=== PATIENT | female | born 1990 | race Caucasian/White ===

== ENCOUNTER 2016-05-13 01:07 | Inpatient (IN) | payer MEDICAID, OTHER ==
[~2016-05-13] VITALS: Ht 157.5 cm; Wt 63.5 kg
[~2016-05-13 01:07] MED LIST: ACHD5005 PO; DCS100C PO; FERR-57 PO; FERR256T PO; IBP600T1 PO; PREN-93 PO
--- OUTSIDE RECORDS SUMMARY | 2016-05-13 01:16 | XMS REPORT ---
Author Author ROLAND ANDERSON Organization [employer] Address Unknown Phone Unavailable Care Team Providers Care Width Stripper Name Role Phone ROLAND ANDERSON CP Unavailable Allergies, Adverse Reactions, Alerts Substance Reaction Event Type Azithromycin childhood reaction Drug Allergy Problems Problem Type Condition Code Onset Dates Condition Status Problem depression F53 Active Problem Bipolar affective disorder, remission status unspecified F31.9 Active Problem Generalized anxiety disorder F41.1 Active Assessment Screen for STD (sexually transmitted disease) Z11.3 Active Problem Post traumatic stress disorder F43.10 Active Assessment Vaginal discharge N89.8 Active Medications Medication Code System Code Instructions Start Date End Date Status Dosage Lexapro [facility] [address]-62 10 mg Orally Once a day July 06, 2015 1 tablet Procedures Procedure Coding System Code Date SUDHA VAG, DNA, DIR PROBE CPT-4 02280 September 20, 2015 No Charge CPT-4 03333 September 20, 2015 Office Visit, Est Pt., Level 3 CPT-4 38734 September 20, 2015 Vital Signs Date/Time: September 20, 2015 Cardiac Monitoring Heart Rate 76 bpm Weight 152.4 lbs Height 62 in Blood Pressure Diastolic 74 mmHg Blood Pressure Systolic 116 mmHg Results No Known Results Summary Purpose [employer] Submission
[2016-05-13 01:51] LABS: BASOPHILS % (AUTO) 0 % (0-10); EOSINOPHILS # (AUTO) 0.1 10^3/uL (0.0-0.3); EOSINOPHILS % (AUTO) 1 % (0-10); LYMPHOCYTES # (AUTO) 2.6 X 10^3 (1.0-4.0); LYMPHOCYTES % (AUTO) 26 % (12-44); MEAN CORPUSCULAR HEMOGLOBIN 28 PG (25-34); MEAN CORPUSCULAR HGB CONC 33 G/DL (32-36); MEAN CORPUSCULAR VOLUME 83 FL (80-99); MEAN PLATELET VOLUME 10.4 FL (7.4-10.4); MONOCYTES # (AUTO) 0.7 X 10^3 (0.0-1.0); MONOCYTES % (AUTO) 7 % (0-12); NEUTROPHILS # (AUTO) 6.6 X 10^3 (1.8-7.8); NEUTROPHILS % (AUTO) 66 % (42-75); PLATELET COUNT 266 10^3/uL (130-400); RED BLOOD COUNT 4.63 10^6/uL (4.35-5.85); WHITE BLOOD COUNT 9.9 10^3/uL (4.3-11.0)
[2016-05-13 01:55] LABS: BILIRUBIN,URINE NEGATIVE (NEGATIVE); KETONES,URINE NEGATIVE (NEGATIVE); LEUKOCYTE ESTERASE ,URINE 1+ (NEGATIVE); NITRITE,URINE NEGATIVE (NEGATIVE); PH,URINE 8 (5-9); PROTEIN,URINE NEGATIVE (NEGATIVE); UROBILINOGEN,URINE 4 MG/DL (NORMAL)
[2016-05-13 02:03] LABS: WBC,URINE RARE /HPF
[2016-05-13 02:18] LABS: ALANINE AMINOTRANSFERASE 313 U/L (0-55); ALBUMIN 4.3 G/DL (3.2-4.5); AMYLASE 2026 U/L (25-125); ANION GAP 13 MMOL/L (5-14); ASPARTATE AMINO TRANSFERASE 473 U/L (5-34); BILIRUBIN,TOTAL 1.2 MG/DL (0.1-1.0); BLOOD UREA NITROGEN 11 MG/DL (7-18); BUN/CREATININE RATIO 14; CALCIUM 9.2 MG/DL (8.5-10.1); CARBON DIOXIDE 21 MMOL/L (21-32); CHLORIDE 106 MMOL/L (98-107); CREATININE SERUM 0.79 MG/DL (0.60-1.30); GFR ESTIMATED > 60; GLUCOSE 113 MG/DL (70-105); POTASSIUM 3.4 MMOL/L (3.6-5.0); SODIUM 140 MMOL/L (135-145); TOTAL PROTEIN 6.9 G/DL (6.4-8.2)
[2016-05-13] MEDS ORDERED: KETOROLAC 30 MG/ML VIAL IVP ONE (02:30)
--- NOTE | 2016-05-13 02:33 | ED Abdominal Pain ---
General Chief Complaint: Abdominal/GI Problems Stated Complaint: SOB,VOMITING,ABD PAIN RT SIDE,CONSTIPATED Nursing Triage Note: Reports abdominal pain and problems for 6 yrs. States on Friday 05/12 developed RUQ after eating some soup. Pt c/o pressure feeling in epigastric and forcing self to vomit to try relief and forced self early into small BM. Sepsis Screen: No Definite Risk Source of Information: Patient History of Present Illness Time Seen By Provider: 01:30 Initial Comments PT ARRIVES VIA POV FROM HOME C/O SEVERE PAIN / PRESSURE IN RUQ SINCE Thursday05/09/16 PAIN IS CONSTANT, AND IS WORSE IMMEDIATELY AFTER EATING HAS HAD SAME SYMPTOMS OFF AND ON FOR 6 YEARS--GETS IT A COUPLE OF TIMES A YEAR AND LASTS FOR 1-2 HOURS AND GOES AWAY. HAS NEVER SOUGHT CARE. STATES IT HAS NEVER BEEN THIS BAD OR LASTED THIS LONG HAS HAD NAUSEA SINCE THURSDAY AND HAS VOMITED AT LEAST 15 TIMES SINCE 1600 TODAY. STATES SHE CAN'T KEEP ANYTHING DOWN. STATES SHE HAS BEEN FORCING HERSELF TO VOMIT, TRYING TO RELIEVE PAIN NO DIARRHEA. HAD A VERY SMALL, VERY HARD BM TODAY--STATES SHE FORCED HERSELF TO HAVE BM, TRYING TO RELIEVE PAIN NO FEVER NO URINARY SYMPTOMS LMP 04/17/16--ALMOST 1 WEEK EARLY. NO CONTROL PCP: [facility] Allergies and Home Medications Allergies Coded Allergies: azithromycin (Verified Allergy, Unknown, 01/18/08) Home Medications Docusate Sodium 100 Mg Cap #40 100 MG PO BID PRN PRN CONSTIPATION Prescribed by: DONNA RUBIO on 09/13/14830 Ferrous Sulfate 325 Mg Tablet #60 325 MG PO DAILY Prescribed by: DONNA RUBIO on 09/13/14830 Hydrocodone Bit/Acetaminophen 1 Tab Tab #50 1-2 TAB PO Q6H PRN PRN PAIN Prescribed by: DONNA RUBIO on 09/13/14830 Ibuprofen 600 Mg Tab #60 600 MG PO Q6H PRN PRN PAIN Prescribed by: DONNA RUBIO on 09/13/14830 Vit/Fe Fumarate/Fa 1 Each Tablet 1 EACH PO HS (Reported) Review of Systems Constitutional: no symptoms reported EENTM: No Symptoms Reported Respiratory: No Symptoms Reported Cardiovascular: No Symptoms Reported Gastrointestinal: See HPI Abdominal Pain Constipated Nausea Poor Appetite Poor Fluid Intake Vomiting Genitourinary: No Symptoms Reported Musculoskeletal: no symptoms reported Skin: no symptoms reported Psychiatric/Neurological: No Symptoms Reported Endocrine: No Symptoms Reported Hematologic/Lymphatic: No Symptoms Reported Past Vepzlsp-Wxjpbi-Jevyje Hx Patient Social History Alcohol Use: Occasionally Uses (HISTORY OF VERY HEAVY USE, BUT NOW ONLY "OCCASIONALLY"--DID DRINK ON 05/03/16) Recreational Drug Use: No Smoking Status: Former Smoker (03/10 PPD, QUIT 12/2015) Type Used: Cigarettes 2nd Hand Smoke Exposure: No Recent Foreign Travel: No Contact w/Someone Who Travel: No Recent Infectious Disease Expo: No Recent Hopitalizations: No Immunizations Up To Date Tetanus Booster (TDap): More than 5yrs PED Vaccines UTD: Yes Date of Influenza Vaccine: Dec 08, 2015 Seasonal Allergies Seasonal Allergies: No Surgeries HX Surgeries: Yes ( x 2) Surgeries: Section Respiratory Hx Respiratory Disorders: No Cardiovascular Hx Cardiac Disorders: No Neurological Hx Neurological Disorders: No Reproductive System : No Hx Reproductive Disorders: No Sexually Transmitted Disease: Yes (HPV, abnormal pap) Female Reproductive Disorders: Denies Genitourinary Hx Genitourinary Disorders: No Gastrointestinal Hx Gastrointestinal Disorders: Yes Gastrointestinal Disorders: Irritable Bowel Musculoskeletal Hx Musculoskeletal Disorders: No Endocrine Hx Endocrine Disorders: No HEENT HX ENT Disorders: No Cancer Hx Cancer: No Psychosocial Hx Psychiatric Problems: Yes Behavioral Health Disorders: Anxiety, Depression Integumentary HX Skin/Integumentary Disorder: Yes Skin/Integumentary Disorders: Eczema Blood Transfusions Hx Blood Disorders: Yes (ANEMIA) Adverse Reaction to a Blood Tr: No Family Medical History Family Medial History: Arthritis GRANDPARENTS No Family History of: AIDS Abdominal aortic aneurysm Alcoholism Alzheimer's disease Asthma Cancer of mouth Cardiovascular disease Cataracts Colon cancer Completed stroke Dementia Diabetes mellitus Drug abuse Glaucoma Hypertension Kidney disease Myocardial infarction Parkinson's disease Prostate cancer Psychosocial problem Respiratory disorder Seizure disorder Severe allergy Thyroid disease Tuberculosis Physical Exam Vital Signs VS - Last 72 Hours, by Label 05/13/16 05/13/16 01:20 02:55 Temp 98.7 98.7 Pulse 87 Resp 20 B/P 117/72 Pulse Ox 100 O2 Delivery Room Air Capillary Refill : Less Than 3 Seconds General Appearance: WD/WN other (ANXIOUS, TALKING NON-STOP, HYPERVENTILATING) HEENT: PERRL/EOMI normal ENT inspectionNo scleral icterus (R), No scleral icterus (L) Neck: normal inspection Respiratory: normal breath sounds no respiratory distress no accessory muscle use Cardiovascular: regular rate, rhythm no murmur Gastrointestinal: normal bowel sounds soft no organomegaly no pulsatile massNo distended, No guarding, No rebound, tenderness (EPIGASTRIC AND RUQ TENDERNESS)No hernia, No mass Back: normal inspection no CVA tenderness Neurologic/Psychiatric: computer repairer II-XII nml as tested no motor/sensory deficits alert oriented x 3 Skin: normal color warm/dryNo rash, tattoos/piercings (MULTIPLE TATTOOS) Progress/Results/Core Measures Results/Orders Lab Results Laboratory Tests Test 05/13/16 01:43 05/13/16 01:46 Range/Units Alanine Aminotransferase (ALT/SGPT) 313 H 0-55 U/L Albumin 4.3 3.2-4.5 G/DL Alkaline Phosphatase 204 H 40-136 U/L Amylase Level 2026 H 25-125 U/L Anion Gap 13 5-14 MMOL/L Aspartate Amino Transf (AST/SGOT) 473 H 5-34 U/L BUN/Creatinine Ratio 14 Basophils # (Auto) 0.0 0.0-0.1 10^3/uL Basophils (%) (Auto) 0 0-10 % Blood Urea Nitrogen 11 7-18 MG/DL Calcium Level 9.2 8.5-10.1 MG/DL Carbon Dioxide Level 21 21-32 MMOL/L Chloride Level 106 98-107 MMOL/L Creatinine 0.79 0.60-1.30 MG/DL Eosinophils # (Auto) 0.1 0.0-0.3 10^3/uL Eosinophils (%) (Auto) 1 0-10 % Estimat Glomerular Filtration Rate > 60 Glucose Level 113 H 70-105 MG/DL Hematocrit 38 35-52 % Hemoglobin 12.8 11.5-16.0 G/DL Lipase 8-78 U/L Lymphocytes # (Auto) 2.6 1.0-4.0 X 10^3 Lymphocytes (%) (Auto) 26 12-44 % Mean Corpuscular Hemoglobin 28 25-34 PG Mean Corpuscular Hemoglobin Concent 33 32-36 G/DL Mean Corpuscular Volume 83 80-99 FL Mean Platelet Volume 10.4 7.4-10.4 FL Monocytes # (Auto) 0.7 0.0-1.0 X 10^3 Monocytes (%) (Auto) 7 0-12 % Neutrophils # (Auto) 6.6 1.8-7.8 X 10^3 Neutrophils (%) (Auto) 66 42-75 % Platelet Count 266 130-400 10^3/uL Potassium Level 3.4 L 3.6-5.0 MMOL/L Red Blood Count 4.63 4.35-5.85 10^6/uL Red Cell Distribution Width 14.0 10.0-14.5 % Sodium Level 140 135-145 MMOL/L Total Bilirubin 1.2 H 0.1-1.0 MG/DL Total Protein 6.9 6.4-8.2 G/DL White Blood Count 9.9 4.3-11.0 10^3/uL Urine Bacteria TRACE /HPF Urine Bilirubin NEGATIVE NEGATIVE Urine Casts NONE /LPF Urine Clarity CLEAR Urine Color YELLOW Urine Crystals NONE /LPF Urine Culture Indicated NO Urine Glucose (UA) NEGATIVE NEGATIVE Urine Ketones NEGATIVE NEGATIVE Urine Leukocyte Esterase 1+ H NEGATIVE Urine Mucus SMALL H /LPF Urine Nitrite NEGATIVE NEGATIVE Urine Protein NEGATIVE NEGATIVE Urine RBC RARE /HPF Urine RBC (Auto) NEGATIVE NEGATIVE Urine Specific [place] 1.010 L 1.016-1.022 Urine Squamous Epithelial Cells 10-25 H /HPF Urine Urobilinogen 4 H NORMAL MG/DL Urine WBC RARE /HPF Urine pH 8 5-9 My Orders Orders-LOREE ALVAREZ DO Saline Lock/Iv-Start (05/13/16 01:34) Urine Bedside (05/13/16 01:34) Amylase (05/13/16 01:34) Cbc With Automated Diff (05/13/16 01:34) Comprehensive Metabolic Panel (05/13/16 01:34) Lipase (05/13/16 01:34) Ua Culture If Indicated (05/13/16 01:34) Ct Abdomen/Pelvis W (05/13/16 02:15) Ketorolac Injection (Toradol Injection) (05/13/16 02:30) Iohexol Injection (Omnipaque 350 Mg/Ml 1 (05/13/16 03:30) Ns (Ivpb) (Sodium Chloride 0.9% Ivpb Bag (05/13/16 03:30) Fentanyl Injection (Sublimaze Injection (05/13/16 04:24) Medications Given in ED Current Medications Medications Dose Ordered Sig/Laura Route Start Time Stop Time Status Last Admin Dose Admin Iohexol 100 ml ONCE ONCE IV 05/13/16 03:30 05/13/16 03:31 DC 05/13/16 03:31 100 ML Ketorolac Tromethamine 30 mg ONCE ONCE IVP 05/13/16 02:30 05/13/16 02:31 DC 05/13/16 02:55 30 MG Sodium Chloride 100 ml ONCE ONCE IV 05/13/16 03:30 05/13/16 03:31 DC 05/13/16 03:31 80 ML Vital Signs/I&O Vital Sign - Last 12Hours 05/13/16 05/13/16 01:20 02:55 Temp 98.7 98.7 Pulse 87 Resp 20 B/P 117/72 Pulse Ox 100 O2 Delivery Room Air Blood Pressure Mean: 87 Point of Care Testing Urine -Bedside: Negative Progress Note : Progress Note PAIN AND NAUSEA EASED AT TIME OF ADMIT Diagnostic Imaging Comments CT ABDOMEN/PELVIS--ACUTE PANCREATITIS, WITH GALLSTONES AND DILATED CBD TO 9MM AND CHOLEDOCHOLITHIASIS IS SUSPECTED. PER [facility] VIA FAX @ [phone] Reviewed: Reviewed by Me Departure Communication Progress Notes 0420--SPOKE WITH DR. MAHAN, ACCEPTS PT FOR ADMIT Impression Impression: Primary Impression: Acute gallstone pancreatitis Additional Impression: Gallbladder calculus with acute cholecystitis Disposition: ADMITTED INPATIENT Condition: Stable Decision to Admit Reason: Admit from ER (General) Decision to Admit/Date: May 13, 2016 Time/Decision to Admit Time: 04:20 Departure-Patient Inst. Referrals: LIO REYES DO (PCP) Primary Care Physician [facility] (Family) Primary Care Physician LOREE ALVAREZ DO May 13, 2016 02:33
[2016-05-13] MEDS ORDERED: IOHEXOL 350 MG/ML 100 ML (OMNIPAQUE 350) VIAL IV ONE (03:30)
[2016-05-13] MEDS ORDERED: NS 100 ML (IVPB) BAG IV ONE (03:30)
[2016-05-13] MEDS ORDERED: fentaNYL INJECTION 100 MCG/2 ML AMP IVP STA (04:24)
[2016-05-13] MEDS ORDERED: D5 1/2 NS 1000 ML IV SOLUTION 1,000 ML IV ONE (05:24)
[2016-05-13] MEDS ORDERED: ONDANSETRON 4 MG/2 ML (SDV) Z0FRAN ONE ×2 (05:33→16:47)
[2016-05-13] MEDS: fentaNYL INJECTION 100 MCG/2 ML AMP IVP PRN ×4 (05:40→09:19)
[2016-05-13] MEDS: D5 1/2 NS 1000 ML IV SOLUTION 1,000 ML IV SCH ×2 (05:53→12:41)
[2016-05-13] MEDS ORDERED: KETOROLAC 30 MG/ML VIAL IV PRN (06:00)
[2016-05-13 08:00] VITALS: BP 90/58
[2016-05-13 08:08] LABS: BASOPHILS % (AUTO) 0 % (0-10); EOSINOPHILS # (AUTO) 0.1 10^3/uL (0.0-0.3); EOSINOPHILS % (AUTO) 1 % (0-10); LYMPHOCYTES % (AUTO) 13 % (12-44); MEAN CORPUSCULAR HEMOGLOBIN 28 PG (25-34); MEAN CORPUSCULAR HGB CONC 33 G/DL (32-36); MEAN CORPUSCULAR VOLUME 83 FL (80-99); MEAN PLATELET VOLUME 10.6 FL (7.4-10.4); MONOCYTES # (AUTO) 0.5 X 10^3 (0.0-1.0); MONOCYTES % (AUTO) 7 % (0-12); NEUTROPHILS # (AUTO) 5.8 X 10^3 (1.8-7.8); NEUTROPHILS % (AUTO) 78 % (42-75); PLATELET COUNT 246 10^3/uL (130-400); RED BLOOD COUNT 4.64 10^6/uL (4.35-5.85); RED CELL DISTRIBUTION WIDTH 13.9 % (10.0-14.5); WHITE BLOOD COUNT 7.4 10^3/uL (4.3-11.0)
[2016-05-13] MEDS: ONDANSETRON 4 MG/2 ML (SDV) Z0FRAN IV PRN ×3 (08:29→18:41)
[2016-05-13 08:30] LABS: ALANINE AMINOTRANSFERASE 468 U/L (0-55); ALBUMIN 4.1 G/DL (3.2-4.5); AMYLASE 2599 U/L (25-125); ANION GAP 9 MMOL/L (5-14); ASPARTATE AMINO TRANSFERASE 529 U/L (5-34); BILIRUBIN,TOTAL 1.8 MG/DL (0.1-1.0); BLOOD UREA NITROGEN 9 MG/DL (7-18); BUN/CREATININE RATIO 12; CALCIUM 8.6 MG/DL (8.5-10.1); CARBON DIOXIDE 23 MMOL/L (21-32); CHLORIDE 107 MMOL/L (98-107); CREATININE SERUM 0.77 MG/DL (0.60-1.30); GFR ESTIMATED > 60; GLUCOSE 160 MG/DL (70-105); POTASSIUM 3.9 MMOL/L (3.6-5.0); SODIUM 139 MMOL/L (135-145); TOTAL PROTEIN 6.5 G/DL (6.4-8.2)
--- NOTE | 2016-05-13 08:41 | Diagnostic Imaging Report ---
PROCEDURE: CT abdomen and pelvis with contrast. TECHNIQUE: Multiple contiguous axial images were obtained through the abdomen and pelvis after administration of intravenous contrast. INDICATION: Postprandial right upper quadrant pain. FINDINGS: The pancreas is thickened and mildly hypodense with infiltration of the peripancreatic fat, most notably adjacent to its tail and distal body, compatible with acute pancreatitis. There is thickening along the left lateral conal fascia but no substantial volume of abdominal/pelvic free fluid. No acute fluid collection or pseudocyst. There is cholelithiasis present. The stones in the gallbladder lumen are barely calcified and difficult to perceive but are confirmed present. There is ectasia of the extrahepatic bile duct. The common duct measures 9.5 mm in diameter. The lumen of the distal common bile duct shows some heterogeneity and this is suspicious for intraductal minimally calcified stones as well. Consider MRCP. There is only trace ectasia of the intrahepatic biliary ducts. The liver parenchyma is otherwise normal. The spleen is within normal limits. There is no basilar pleural fluid. The kidneys are unobstructed. Ovarian follicular cysts bilaterally are noted with the right measuring 1.6 and on the left 2.0 cm. The uterus and urinary bladder are normal. IMPRESSION: The findings are most compatible with acute pancreatitis without pseudocyst or other fluid collection. No substantial ascites. Trace intra and mild extrahepatic bile duct dilatation with cholelithiasis. The gallstones are minimally calcified and subtle on CT. There is intraluminal subtle heterogeneity within the distal common bile duct, suspicious for choledocholithiasis with minimal calcification. Consider MRCP. No other substantial finding. Dictated by: Dictated on workstation # [id number]
[2016-05-13] MEDS ORDERED: RANI150T15 PO (09:03)
[2016-05-13] MEDS ORDERED: ONDANSETRON 4 MG/2 ML (SDV) Z0FRAN IVP ONE (09:30)
[2016-05-13] MEDS: morphine INJ 4 MG/ML 1 ML (VIAL/SYRINGE) IVP PRN ×5 (09:33→19:34)
[2016-05-13] MEDS ORDERED: CATHETER FLUSH 10 ML SYR IV PRN (10:00)
--- NOTE | 2016-05-13 11:29 | History & Physical-Surgical ---
History of Present Illness History of Present Illness Reason for visit/HPI Pt was admitted for Acute pancreatitis. HPI: Reports abdominal pain and problems for 6 yrs. States on Thursday developed RUQ after eating some soup. Pt c/o pressure feeling in epigastric and forcing self to vomit to try relief and forced self early into small BM. Pain did not go away and finally came into the ER at around 1am last night. She reports "gallbladder problems" for the past 6 yrs, gets pain a couple of time a year, lasts 1-2 hours and then goes away. She was unable to keep anything down. This am pain was 10 out of 10 , the worst it has every been. "I wanted to just pass out so pain would go away". It was in the RUQ and mid chest radiating straight through to her back. Denied any diarrhea, dysuria or hematuria. Pain better now with Morphine. Date of Admission May 13, 2016 at 04:20 I consulted on this patient on 05/13/16 11:23 Attending Physician Nasim Frances DO Admitting Physician Brittney Dolan DO Consult Allergies and Home Medications Allergies Coded Allergies: azithromycin (Verified Allergy, Unknown, 01/18/08) Home Medications Ranitidine HCl 150 Mg Tablet 150 MG PO BID (Reported) Past Awwhfmj-Bqjgzc-Yttazh Hx Patient Social History Alcohol Use: Occasionally Uses (pt states for 2-3 yrs she drank a half a bottle of vodka a day, quit 4 yrs ago.) Recreational Drug Use: No Smoking Status: Former Smoker Type Used: Cigarettes 2nd Hand Smoke Exposure: No Recent Foreign Travel: No Contact w/Someone Who Travel: No Recent Infectious Disease Expo: No Recent Hopitalizations: No Physical Abuse Screen: No Sexual Abuse: No Immunizations Up To Date Tetanus Booster (TDap): More than 5yrs PED Vaccines UTD: Yes Date of Influenza Vaccine: Dec 08, 2015 Seasonal Allergies Seasonal Allergies: No Surgeries HX Surgeries: Yes ( x 2) Surgeries: Section Respiratory Hx Respiratory Disorders: No Cardiovascular Hx Cardiac Disorders: No Neurological Hx Neurological Disorders: No Reproductive System : No Hx Reproductive Disorders: No Sexually Transmitted Disease: Yes (HPV, abnormal pap) Female Reproductive Disorders: Denies Genitourinary Hx Genitourinary Disorders: No Gastrointestinal Hx Gastrointestinal Disorders: Yes Gastrointestinal Disorders: Irritable Bowel Musculoskeletal Hx Musculoskeletal Disorders: No Endocrine Hx Endocrine Disorders: No HEENT HX ENT Disorders: No Cancer Hx Cancer: No Psychosocial Hx Psychiatric Problems: Yes Behavioral Health Disorders: Anxiety, Depression Integumentary HX Skin/Integumentary Disorder: Yes Skin/Integumentary Disorders: Eczema Blood Transfusions Hx Blood Disorders: Yes (ANEMIA) Adverse Reaction to a Blood Tr: No Family Medical History Significant Family History: No Pertinent Family Hx (Pt states parents do not have DM or HTN), Cancer (grandmother had Non-Hodgkins lymphoma) Constitutional: No chills, No dizziness, No fever, malaise weakness EENTM: No blurred vision, No epistaxis, No hearing loss, No mouth pain, No mouth swelling, No throat swelling Respiratory: No cough, No dyspnea on exertion, No hemoptysis, No short of breath Cardiovascular: No chest pain, No palpitations Gastrointestinal: RUQ loss of appetite nausea vomiting Genitourinary: No discharge, No dysuria, No frequency, No hematuria : No Musculoskeletal: No joint pain, No joint swelling, No muscle pain, No muscle stiffness Skin: No change in color, No dryness, No lesions Psychiatric/Neurological: Denies Anxiety, Denies Depressed, Denies Headache, Denies Seizure, Denies Tingling, Denies Weakness Other Pt denies any chronic illnesses, no swollen lymph nodes. Denies heat or cold intolerance Physical Exam Vital Signs Vital Sign - Last 12Hours 05/13/16 01:20 Temp 98.7 Pulse 87 Resp 20 B/P 117/72 Pulse Ox 100 O2 Delivery Room Air Capillary Refill : Less Than 3 Seconds General Appearance: WD/WN Moderate Distress Eyes: Bilateral Eye EOMI, Bilateral Eye PERRL HEENT: Pharynx Normal Scleral Icterus (L) Scleral Icterus (R) Other (good dentition) Neck: Full Range of Motion Normal Inspection Non Tender SuppleNo Thyromegaly Respiratory: Lungs Clear Normal Breath Sounds No Accessory Muscle Use No Respiratory Distress Cardiovascular: Regular Rate, Rhythm No Edema No Murmur Normal Peripheral Pulses Gastrointestinal: Normal Bowel Sounds No Organomegaly No Pulsatile Mass Soft Tenderness (RUQ and midepigastric) Rectal: Deferred Back: No CVA Tenderness No Vertebral Tenderness Extremity: Normal Capillary Refill Normal Inspection Normal Range of Motion No Calf Tenderness Neurologic/Psychiatric: Alert Oriented x3 No Motor/Sensory Deficits Normal Mood/Affect testing engineer II-XII Norm as Tested Skin: Warm/Dry Jaundice Other (denies any itching) Lymphatic: No Adenopathy (neck, axill or groin) Data Review Labs Laboratory Tests 05/13/16 01:43: Alanine Aminotransferase (ALT/SGPT) 313H, Albumin 4.3, Alkaline Phosphatase 204H , Amylase Level 2026H, Anion Gap 13, Aspartate Amino Transf (AST/SGOT) 473H, BUN /Creatinine Ratio 14, Basophils # (Auto) 0.0, Basophils (%) (Auto) 0, Blood Urea Nitrogen 11, Calcium Level 9.2, Carbon Dioxide Level 21, Chloride Level 106 , Creatinine 0.79, Eosinophils # (Auto) 0.1, Eosinophils (%) (Auto) 1, Estimat Glomerular Filtration Rate > 60, Glucose Level 113H, Hematocrit 38, Hemoglobin 12.8, Lipase , Lymphocytes # (Auto) 2.6, Lymphocytes (%) (Auto) 26, Mean Corpuscular Hemoglobin 28, Mean Corpuscular Hemoglobin Concent 33, Mean Corpuscular Volume 83, Mean Platelet Volume 10.4, Monocytes # (Auto) 0.7, Monocytes (%) (Auto) 7, Neutrophils # (Auto) 6.6, Neutrophils (%) (Auto) 66, Platelet Count 266, Potassium Level 3.4L, Red Blood Count 4.63, Red Cell Distribution Width 14.0, Sodium Level 140, Total Bilirubin 1.2H, Total Protein 6.9, White Blood Count 9.9 05/13/16 01:46: Urine Bacteria TRACE, Urine Bilirubin NEGATIVE, Urine Casts NONE, Urine Clarity CLEAR, Urine Color YELLOW, Urine Crystals NONE, Urine Culture Indicated NO, Urine Glucose (UA) NEGATIVE, Urine Ketones NEGATIVE, Urine Leukocyte Esterase 1+ H, Urine Mucus SMALLH, Urine Nitrite NEGATIVE, Urine Protein NEGATIVE, Urine RBC RARE, Urine RBC (Auto) NEGATIVE, Urine Specific [place] 1.010L, Urine Squamous Epithelial Cells 10-25H, Urine Urobilinogen 4H, Urine WBC RARE, Urine pH 8 05/13/16 07:59: Alanine Aminotransferase (ALT/SGPT) 468H, Albumin 4.1, Alkaline Phosphatase 226H , Amylase Level 2599H, Anion Gap 9, Aspartate Amino Transf (AST/SGOT) 529H, BUN/ Creatinine Ratio 12, Basophils # (Auto) 0.0, Basophils (%) (Auto) 0, Blood Urea Nitrogen 9, Calcium Level 8.6, Carbon Dioxide Level 23, Chloride Level 107, Creatinine 0.77, Eosinophils # (Auto) 0.1, Eosinophils (%) (Auto) 1, Estimat Glomerular Filtration Rate > 60, Glucose Level 160H, Hematocrit 39, Hemoglobin 12.9, Lipase , Lymphocytes # (Auto) 1.0, Lymphocytes (%) (Auto) 13, Mean Corpuscular Hemoglobin 28, Mean Corpuscular Hemoglobin Concent 33, Mean Corpuscular Volume 83, Mean Platelet Volume 10.6H, Monocytes # (Auto) 0.5, Monocytes (%) (Auto) 7, Neutrophils # (Auto) 5.8, Neutrophils (%) (Auto) 78H, Platelet Count 246, Potassium Level 3.9, Red Blood Count 4.64, Red Cell Distribution Width 13.9, Sodium Level 139, Total Bilirubin 1.8H, Total Protein 6.5, White Blood Count 7.4 Assessment/Plan Assessment/Plan Assessment/Plan Acute Pancreatitis - Probably due to gallstones. --IV fluids, check labs. Unfortunately her labs are trending up, not down and her pain is worsening. I believe pt needs to go for an ERCP and can then do the Cholecystectomy as an outpt. Discussed with pt the ERCP and briefly went over Lap gisel. Will try and arrange transfer to [place] for the ERCP and then bring pt back. All questions answered to her satisfaction. Clinical Quality Measures DVT/VTE Risk/Contraindication: RFS Level Per Nursing on Admit: 1=Low/No VTE PPX NASIM FRANCES DO May 13, 2016 11:29
[2016-05-13 12:00] VITALS: BP 101/65
[2016-05-13] MEDS ORDERED: ceFAZolin 2 GM/50 ML NS 50 ML IV NR (15:15)
[2016-05-13] MEDS ORDERED: fentaNYL INJECTION 100 MCG/2 ML AMP ONE (15:32)
[2016-05-13] MEDS ORDERED: SCOPOLAMINE 1.5 MG (TRANSDERM-SCOP) PATCH ONE (15:32)
[2016-05-13] MEDS ORDERED: MIDAZOLAM 2 MG/2 ML (VERSED) VIAL ONE (15:33)
[2016-05-13] MEDS ORDERED: LIDOCAINE/EPI 1%-1:100,000 (XYLOCAINE) 20ML ONE (15:49)
[2016-05-13 16:19] LABS: LIPASE 7901 U/L (8-78)
[2016-05-13] MEDS ORDERED: morphine INJ 10 MG/ML 1ML (SYR OR VIAL) ONE (16:35)
[2016-05-13] MEDS ORDERED: SEVOFLURANE (ULTANE) 15 ML INHAL SOLN ONE ×5 (16:47)
[2016-05-13] MEDS ORDERED: LACTATED RINGERS 2,000 ML IV ONE (16:47)
[2016-05-13] MEDS ORDERED: NEOSTIGMINE (BLOXIVERZ ) 1 MG/1ML 10 ML VIAL ONE (16:47)
[2016-05-13] MEDS ORDERED: ROCURONIUM 50 MG/5 ML (ZEMURON) VIAL IV ONE (16:47)
[2016-05-13] MEDS ORDERED: proPOfol 200 MG/20 ML (DIPRIVAN) VIAL IV ONE (16:47)
[2016-05-13] MEDS ORDERED: GLYCOPYRROLATE 0.2 MG/ML (ROBINUL) 2 ML VIAL ONE (16:47)
[2016-05-13] MEDS ORDERED: LIDOCAINE PF 2% 10 ML (XYLOCAINE) AMP ONE (16:47)
[2016-05-13] MEDS ORDERED: DEXAMETHASONE PF 10 MG/ML (DECADRON) VIAL ONE (16:47)
[2016-05-13] MEDS ORDERED: KETOROLAC 30 MG/ML VIAL ONE ×2 (16:48→17:34)
--- NOTE | 2016-05-13 17:01 | Diagnostic Imaging Report ---
INDICATION: Laparoscopic cholecystectomy. FINDINGS: Multiple spot intraoperative views demonstrate contrast injection through the cystic duct with multiple filling defects in the common bile duct. Contrast does not enter the duodenum. A total of 21 seconds of fluoroscopy time was obtained. IMPRESSION: The intraoperative cholangiogram demonstrates multiple obstructing calculi in the distal common bile duct. Dictated by: Dictated on workstation # [id number]
--- NOTE | 2016-05-13 17:06 | Progress Note-Post Operative ---
Post-Operative Progess Note Assistant Professor Of Surgery Jeff Grey MS -III Pre-Operative Diagnosis Acute gallstone pancreatitis Post-Operative Diagnosis Choledochalithiasis with obstruction Acute gallstone pancreatitis Post-Op Procedure Note Date of Procedure: May 13, 2016 Name of Procedure: Lap gisel with cholangiogram Anesthesia Type GET Estimated blood loss (mL): less than 5ml Specimen(s) collected GB and contents ISRRAEL MAHAN DO May 13, 2016 17:06
[2016-05-13] MEDS ORDERED: metroNIDAZOLE 500MG/100ML IVPB 100 ML IV SCH (17:15)
[2016-05-13] MEDS ORDERED: LACTATED RINGERS 1,000 ML IV SCH (17:15)
[2016-05-13] MEDS ORDERED: CIPROFLOXACIN IV 400MG/200ML 200 ML IV SCH (17:15)
[2016-05-13] MEDS ORDERED: fentaNYL INJECTION 100 MCG/2 ML AMP IV PRN (17:30)
[2016-05-13] MEDS ORDERED: ONDANSETRON 4 MG/2 ML (SDV) Z0FRAN IV ONE (17:30)
[2016-05-13] MEDS ORDERED: OXYTOCIN/NORMAL SALINE 0 ML IV ONE (17:34)
[2016-05-13] MEDS: morphine INJ 10 MG/ML 1ML (SYR OR VIAL) IV PRN ×2 (17:36→17:41)
[2016-05-13 18:00] VITALS: BP 113/66
[2016-05-13 20:13] VITALS: BP 118/68
[2016-05-14 07:32] LABS: LIPASE 7909 U/L (8-78)
--- NOTE | 2016-05-15 09:19 | OPERATIVE REPORT ---
PROCEDURE PHYSICIAN: ISRRAEL FRANCES DATE OF PROCEDURE: PREOPERATIVE DIAGNOSIS: Acute gallstone pancreatitis. POSTOPERATIVE DIAGNOSIS: 1. Choledocholithiasis with obstruction. 2. Acute gallstone pancreatitis. SURGEON: Dr. Frances SAFETY EQUIPMENT TESTING SPECIALIST: Dale Grey, medical student. ANESTHESIA: General endotracheal tube. SPECIMEN: Gallbladder and contents. BLOOD LOSS: Less than 5 mL FLUIDS: Per anesthesia. POSTOPERATIVE CONDITION: Stable. INDICATION FOR THE PROCEDURE: The patient is a 26-year-old female who started having some up right upper quadrant abdominal pain and midepigastric pain. It started on Thursday, got progressively worse until she finally came in last and at 1 a.m. She was found to have an elevated amylase of 2000 the lipase 7900 with, elevated bilirubin. Subsequently recheck showed that those were worsening. She was thought to have acute pancreatitis. When discussion with GI it is felt better that maybe she procedure to confirm the diagnosis and then could do the ERCP after because they are starting to avoid unnecessary ERCPs. FINDINGS: The patient had a very distended gallbladder. It was also very edematous. There were adhesions to the gallbladder which indicates acute cholecystitis. When the cystic duct was cut, it was under pressure and a cholangiogram unfortunately showed multiple stones, a large amount blocking the common bile duct and the contrast did not go into the small intestine. PROCEDURE NOTE: After informed consent was obtained patient brought to the operating room, placed on the table in the supine position. She was sterilely prepped and draped in the normal fashion. Local lidocaine used to infiltrate under the umbilicus. Then I made an incision with a number 11 blade, carried down through skin into subcutaneous tissue, then deepened down the subcutaneous tissue with Bovie electrocautery down to the fascia. The fascia then was incised with Bovie electrocautery and then bluntly entered the abdomen. Swept the finger around. Placed 11 mm trocar port held and place the balloon and then placed 2 more ports in the normal fashion using local lidocaine, 11 blade for stab incision and the Versa step system all done under direct visualization; one subxiphoid and 2 in the right upper quadrant. The patient was then placed in reversed Trendelenburg rotated to the left. Upon entering noted that the gallbladder is very distended, able to grasp at the fundus and taken in the superior direction. There were adhesions and actually some bile stained edema around this area. Carefully took these adhesions down, able to grasp down Augustus's pouch and pulled in an inferolateral direction and started dissecting out the cystic duct and cystic artery. The cystic duct was also a predilated able to get around this and the cystic artery. Placed one clip distally on the cystic duct and then one distally and 2 proximally on the on the cystic artery. Cut the cystic duct half way through Metzenbaum scissors and immediately got a large and quick outflow of bile showing it was under pressure. Placed a cholangiogram catheter and shot a cholangiogram. Good spillage of dye down the common duct and up into the common hepatic and right and left hepatic. Also, started to go into the pancreas however in the common bile duct noted multiple multiple translucencies, some multiple stones and the contrast unable to get into the small intestine; this is a choledocholithiasis with obstruction. I removed the cholangiogram catheter, placed 3 clips proximally on the cystic duct because I knew the patient was going to need an ERCP and then cut the cystic duct and cystic artery with Metzenbaum scissors. Removed the gallbladder from the bed of the liver with the L-hook cautery. A lot of edema surrounding the gallbladder. Once the gallbladder was removed, switched to a 5 mm camera, placed a bag in the abdomen placed the gallbladder in the bag and then removed this through an infraumbilical incision. I placed the port back in the abdomen. Copiously irrigated with normal saline, suctioned this out, looked at the bed of liver. There is no bleeding. Looked around and no other obvious pathology but did not move any of the intra-abdominal structures. At this point then placed the patient supine and removed all ports under visualization, allowing pneumoperitoneum to escape as well as suctioning it out. I elected to close the peritoneum with 3-0 Vicryl [id number] suture. Then closed the infraumbilical incision and then closed the fascia with 0 Vicryl 2 [id number] sutures were used to close this. Copiously irrigated all incisions with normal saline and then closed the three small 5 mm incisions with single interrupted 4-0 undyed Monocryl subcuticular stitch. Closed the infraumbilical incision with 3 interrupted 4-0 undyed Monocryl subcuticular stitches. The area was cleaned and dried, Dermabond used and then Band-Aids placed. The patient then transferred to recovery in stable condition. Sponge, instrument and needle counts were correct at the end of the case. Job ID: [id number] Dictated Date: 05/13/2016 17:35:15 Carpenter Mate Date: 05/15/2016 08:52:13 / yefri HANSON
--- NOTE | 2016-05-30 16:34 | Discharge Summary ---
Diagnosis/Chief Complaint Date of Admission May 13, 2016 at 04:20 Date of Discharge May 13, 2016 at 20:30 Admission Diagnosis Admission Diagnosis Gallstone Pancreatitis Discharge Diagnosis Choledochalithiasis with Obstruction Pancreatitis secondary to gallstones Reason Hospital Visit Pt was admitted for Acute pancreatitis. HPI: Reports abdominal pain and problems for 6 yrs. States on Thursday developed RUQ after eating some soup. Pt c/o pressure feeling in epigastric and forcing self to vomit to try relief and forced self early into small BM. Pain did not go away and finally came into the ER at around 1am last night. She reports "gallbladder problems" for the past 6 yrs, gets pain a couple of time a year, lasts 1-2 hours and then goes away. She was unable to keep anything down. This am pain was 10 out of 10 , the worst it has every been. "I wanted to just pass out so pain would go away". It was in the RUQ and mid chest radiating straight through to her back. Denied any diarrhea, dysuria or hematuria. Pain better now with Morphine. Discharge Summary Procedures: Lap Gisel with Intraoperative cholangiogram Discharge Physical Examination Allergies: Coded Allergies: azithromycin (Verified Allergy, Unknown, 01/18/08) General Appearance: Alert, Oriented X3, Cooperative, No Acute Distress HEENT: PERRLA, EOMI Respiratory: Clear to Auscultation Cardiovascular: Regular Rate, Normal S1, Normal S2 Extremities: No Clubbing, No Cyanosis, No Edema Skin: No Rashes, No Breakdown Psych/Mental Status: Mental Status NL Hospital Course Pt presented with gallstone pancreatitis, which unfortunately got worse. After speaking with GI physician and Surgeon at [facility] it was thought best to do surgery in [place]. Pt was taken to the OR, Lap gisel with IOC done. The cholangiogram showed CBD full of stones with no extravasation of dye. Procedure was completed and pt went to recovery. She was then transferred to [facility] for ERCP; accepted by GI physician. Sent in stable condition. Discharge Instructions to patient/family Please see electonic discharge instructions given to patient. Discharge Medications Reviewed and agree with Discharge Medication list on patient's Discharge Instruction sheet Clinical Quality Measures DVT/VTE Risk/Contraindication: RFS Level Per Nursing on Admit: 1=Low/No VTE PPX ISRRAEL MAHAN DO May 30, 2016 16:34
== END 2016-05-13 20:30 | disposition short-term general hospital (02) | DRG 417 ==
LOC: EDUNIT# 01:07 → ER 01:12 → ICU 04:20 → 4TH 18:33
PROVIDERS: ADMIT Surgery; ATTEND Surgery
PROC: BF101ZZ Fluoroscopy of Bile Ducts using Low Osmolar Contrast (ICD-10-PCS; 2016-05-13)
PROC: 0FT44ZZ Resection of Gallbladder, Percutaneous Endoscopic Approach (ICD-10-PCS; principal; 2016-05-13 15:54)
DX: K80.63 Calculus of gallbladder and bile duct with acute cholecystitis with obstruction (principal); K85.10 Biliary acute pancreatitis without necrosis or infection; Z87.891 Personal history of nicotine dependence
CPT/HCPCS: 36415; 74177; 80053; 81000; 82150; 83690; 84703; 85025; 88304; 96374; 96376

== ENCOUNTER → 2016-05-26 | Outpatient (CLI) | payer OTHER ==
[~2016-05-26] MED LIST changes: +HYDR-757 PO; +RANI150T15 PO
[2016-05-26 17:26] LABS: ALANINE AMINOTRANSFERASE 26 U/L (0-55); ALBUMIN 4.4 G/DL (3.2-4.5); ANION GAP 11 MMOL/L (5-14); ASPARTATE AMINO TRANSFERASE 20 U/L (5-34); BILIRUBIN,TOTAL 0.8 MG/DL (0.1-1.0); BLOOD UREA NITROGEN 10 MG/DL (7-18); BUN/CREATININE RATIO 14; CALCIUM 9.6 MG/DL (8.5-10.1); CARBON DIOXIDE 22 MMOL/L (21-32); CHLORIDE 108 MMOL/L (98-107); CREATININE SERUM 0.71 MG/DL (0.60-1.30); GFR ESTIMATED > 60; GLUCOSE 99 MG/DL (70-105); POTASSIUM 4.3 MMOL/L (3.6-5.0); SODIUM 141 MMOL/L (135-145); TOTAL PROTEIN 7.4 G/DL (6.4-8.2)
== END ==
LOC: LAB 16:45
PROVIDERS: ATTEND Student in an Organized Health Care Education/Training Program
DX: R74.8 Abnormal levels of other serum enzymes (principal)
CPT/HCPCS: 36415; 80053

== ENCOUNTER 2016-05-29 19:44 | Emergency (ER) | payer SELFPAY ==
[~2016-05-29] VITALS: Ht 157.5 cm; Wt 63.5 kg
[~2016-05-29 19:44] MED LIST changes: -HYDR-757 PO
--- NOTE | 2016-05-29 19:57 | ED Integumentary General ---
General Stated Complaint: POST SURGICAL ABD PAIN Source: patient Exam Limitations: no limitations History of Present Illness Time seen by provider: 19:53 Initial Comments To ER with c/o incision draining at the umbilicus. This started today. She had laparoscopic cholecystectomy about a week ago as well as stent placed for choledocholithiasis at [facility] during an ERCP. No fevers or chills. She is passing gas and having bowel movements as per normal. She does report some persistent epigastric pain since the ERCP. She sees Dr Frances tomorrow morning. Severity: moderate Location: none Allergies and Home Medications Allergies Coded Allergies: azithromycin (Verified Allergy, Unknown, 01/18/08) Home Medications Ranitidine HCl 150 Mg Tablet, 150 MG PO BID, (Reported) Constitutional: see HPI, No chills, No fever EENTM: see HPI Respiratory: no symptoms reported Cardiovascular: no symptoms reported Gastrointestinal: abdominal pain Genitourinary: no symptoms reported Musculoskeletal: no symptoms reported Skin: no symptoms reported Psychiatric/Neurological: No Symptoms Reported Endocrine: No Symptoms Reported Past [place]-Qarxaz-Hkeysa Hx Patient Social History Type Used: Cigarettes 2nd Hand Smoke Exposure: No Recent Foreign Travel: No Contact w/Someone Who Travel: No Recent Hopitalizations: No Immunizations Up To Date Tetanus Booster (TDap): More than 5yrs PED Vaccines UTD: Yes Date of Influenza Vaccine: Dec 08, 2015 Seasonal Allergies Seasonal Allergies: No Surgeries HX Surgeries: Yes ( x 2) Surgeries: Section Respiratory Hx Respiratory Disorders: No Cardiovascular Hx Cardiac Disorders: No Neurological Hx Neurological Disorders: No Reproductive System Hx Reproductive Disorders: No Sexually Transmitted Disease: Yes (HPV, abnormal pap) Female Reproductive Disorders: Denies Genitourinary Hx Genitourinary Disorders: No Gastrointestinal Hx Gastrointestinal Disorders: Yes Gastrointestinal Disorders: Irritable Bowel Musculoskeletal Hx Musculoskeletal Disorders: No Endocrine Hx Endocrine Disorders: No HEENT HX ENT Disorders: No Cancer Hx Cancer: No Psychosocial Hx Psychiatric Problems: Yes Behavioral Health Disorders: Anxiety, Depression Integumentary HX Skin/Integumentary Disorder: Yes Skin/Integumentary Disorders: Eczema Blood Transfusions Hx Blood Disorders: Yes (ANEMIA) Adverse Reaction to a Blood Tr: No Family Medical History Significant Family History: No Pertinent Family Hx, Cancer Family Medial History: Arthritis GRANDPARENTS No Family History of: AIDS Abdominal aortic aneurysm Alcoholism Alzheimer's disease Asthma Cancer of mouth Cardiovascular disease Cataracts Colon cancer Completed stroke Dementia Diabetes mellitus Drug abuse Glaucoma Hypertension Kidney disease Myocardial infarction Parkinson's disease Prostate cancer Psychosocial problem Respiratory disorder Seizure disorder Severe allergy Thyroid disease Tuberculosis Physical Exam Vital Signs Vital Sign - Last 12Hours 05/29/16 19:47 Temp 98.2 Pulse 81 Resp 18 B/P (MAP) 113/74 Pulse Ox 99 O2 Delivery Room Air Capillary Refill : General Appearance: WD/WN, no apparent distress HEENT: PERRL/EOMI, normal ENT inspection Neck: non-tender, full range of motion Respiratory: no respiratory distress, no accessory muscle use Gastrointestinal: normal bowel sounds, non tender, soft Neurologic/Psychiatric: alert, normal mood/affect, oriented x 3 Skin: normal color, warm/dry Skin Problem Character: other (incisions are all clean and without erythema. A bit of serous drainage from the umbilical incision but no purulence or erythema. ) Progress/Results/Core Measures Results/Orders Lab Results Laboratory Tests Test 05/29/16 20:02 Range/Units White Blood Count 9.2 4.3-11.0 10^3/uL Red Blood Count 4.39 4.35-5.85 10^6/uL Hemoglobin 12.0 11.5-16.0 G/DL Hematocrit 36 35-52 % Mean Corpuscular Volume 83 80-99 FL Mean Corpuscular Hemoglobin 27 25-34 PG Mean Corpuscular Hemoglobin Concent 33 32-36 G/DL Red Cell Distribution Width 13.7 10.0-14.5 % Platelet Count 370 130-400 10^3/uL Mean Platelet Volume 10.5 H 7.4-10.4 FL Neutrophils (%) (Auto) 64 42-75 % Lymphocytes (%) (Auto) 28 12-44 % Monocytes (%) (Auto) 5 0-12 % Eosinophils (%) (Auto) 2 0-10 % Basophils (%) (Auto) 1 0-10 % Neutrophils # (Auto) 5.9 1.8-7.8 X 10^3 Lymphocytes # (Auto) 2.6 1.0-4.0 X 10^3 Monocytes # (Auto) 0.5 0.0-1.0 X 10^3 Eosinophils # (Auto) 0.2 0.0-0.3 10^3/uL Basophils # (Auto) 0.1 0.0-0.1 10^3/uL Sodium Level 140 135-145 MMOL/L Potassium Level 3.3 L 3.6-5.0 MMOL/L Chloride Level 107 98-107 MMOL/L Carbon Dioxide Level 23 21-32 MMOL/L Anion Gap 10 5-14 MMOL/L Blood Urea Nitrogen 7 7-18 MG/DL Creatinine 0.71 0.60-1.30 MG/DL Estimat Glomerular Filtration Rate > 60 BUN/Creatinine Ratio 10 Glucose Level 114 H 70-105 MG/DL Calcium Level 9.1 8.5-10.1 MG/DL Total Bilirubin 0.9 0.1-1.0 MG/DL Aspartate Amino Transf (AST/SGOT) 16 5-34 U/L Alanine Aminotransferase (ALT/SGPT) 17 0-55 U/L Alkaline Phosphatase 90 40-136 U/L Total Protein 6.6 6.4-8.2 G/DL Albumin 4.2 3.2-4.5 G/DL Lipase 205 H 8-78 U/L My Orders Orders - CHARLEEN BATISTA ABRASIVE GRINDER Cbc With Automated Diff (05/29/16 19:52) Comprehensive Metabolic Panel (05/29/16 19:52) Lipase (05/29/16 19:52) Wound Culture (05/29/16 19:57) Hydrocodone/Apap 5/325 Tablet (Lortab 5 (05/29/16 20:30) Medications Given in ED Current Medications Medications Dose Ordered Sig/Laura Route Start Time Stop Time Status Last Admin Dose Admin Acetaminophen/ Hydrocodone Bitart 1 tab ONCE ONCE PO 05/29/16 20:30 05/29/16 20:31 DC 05/29/16 20:30 1 TAB Vital Signs/I&O Vital Sign - Last 12Hours 05/29/16 19:47 Temp 98.2 Pulse 81 Resp 18 B/P (MAP) 113/74 Pulse Ox 99 O2 Delivery Room Air Departure Communication Progress Notes I discussed with the patient the possibility of this drainage representing a small seroma would be nothing to worry about given the absence of fevers, absence of erythema or cellulitis and normal white blood cell count. Follow-up with Dr. Frances tomorrow as scheduled. Hydrocodone was given for the persistent epigastric pain likely secondary to pancreatitis. 2037-patient's lipase is down to 205. 2 weeks ago it was at 7900 prior to the cholecystectomy/ERCP. We will provide a few more pain pills and have her follow -up with Dr. Frances. Impression Impression: Primary Impression: Incisional drainage Additional Impression: resolving pancreatitis Disposition: 01 HOME, SELF-CARE Condition: Stable Departure-Patient Inst. Decision time for Depature: 20:25 Referrals: LIO REYES DO (PCP/Family) Primary Care Physician Patient Instructions: Surgical Wound (DC) Add. Discharge Instructions: 1. Keep this covered with gauze to absorb any additional drainage 2. Keep your appointment with Dr. Frances tomorrow 3. Return to ER for any concerns 4. Clear liquids only for the rest of tonight 2. Scripts Hydrocodone/Acetaminophen ([place] 5-325 Tablet) 1 Each Tablet 1 EACH PO Q6H Y for PAIN, #10 TAB Prov: CHARLEEN BATISTA APRN 05/29/16 Copy Copies To 1: ISRRAEL FRANCES PETER J APRN May 29, 2016 19:57
[2016-05-29 20:10] LABS: BASOPHILS # (AUTO) 0.1 10^3/uL (0.0-0.1); BASOPHILS % (AUTO) 1 % (0-10); EOSINOPHILS # (AUTO) 0.2 10^3/uL (0.0-0.3); EOSINOPHILS % (AUTO) 2 % (0-10); LYMPHOCYTES # (AUTO) 2.6 X 10^3 (1.0-4.0); LYMPHOCYTES % (AUTO) 28 % (12-44); MEAN CORPUSCULAR HEMOGLOBIN 27 PG (25-34); MEAN CORPUSCULAR HGB CONC 33 G/DL (32-36); MEAN CORPUSCULAR VOLUME 83 FL (80-99); MEAN PLATELET VOLUME 10.5 FL (7.4-10.4); MONOCYTES # (AUTO) 0.5 X 10^3 (0.0-1.0); MONOCYTES % (AUTO) 5 % (0-12); NEUTROPHILS # (AUTO) 5.9 X 10^3 (1.8-7.8); NEUTROPHILS % (AUTO) 64 % (42-75); PLATELET COUNT 370 10^3/uL (130-400); RED BLOOD COUNT 4.39 10^6/uL (4.35-5.85); RED CELL DISTRIBUTION WIDTH 13.7 % (10.0-14.5); WHITE BLOOD COUNT 9.2 10^3/uL (4.3-11.0)
[2016-05-29] MEDS ORDERED: HYDROcodone/APAP 5 MG/325 MG (LORTAB) TAB PO ONE (20:30)
[2016-05-29 20:34] LABS: ALANINE AMINOTRANSFERASE 17 U/L (0-55); ALBUMIN 4.2 G/DL (3.2-4.5); ANION GAP 10 MMOL/L (5-14); ASPARTATE AMINO TRANSFERASE 16 U/L (5-34); BILIRUBIN,TOTAL 0.9 MG/DL (0.1-1.0); BLOOD UREA NITROGEN 7 MG/DL (7-18); BUN/CREATININE RATIO 10; CALCIUM 9.1 MG/DL (8.5-10.1); CARBON DIOXIDE 23 MMOL/L (21-32); CHLORIDE 107 MMOL/L (98-107); CREATININE SERUM 0.71 MG/DL (0.60-1.30); GFR ESTIMATED > 60; GLUCOSE 114 MG/DL (70-105); LIPASE 205 U/L (8-78); POTASSIUM 3.3 MMOL/L (3.6-5.0); SODIUM 140 MMOL/L (135-145); TOTAL PROTEIN 6.6 G/DL (6.4-8.2)
[2016-05-29] MEDS ORDERED: HYDR-757 PO (20:40)
[2016-05-29 20:44] VITALS: BP 100/70
--- OUTSIDE RECORDS SUMMARY | 2016-06-01 10:48 | XMS REPORT ---
Author Author ROLAND ANDERSON Organization [employer] Address Unknown Phone Unavailable Care Team Providers Care Oracle Data Warehouse Developer Name Role Phone ROLAND ANDERSON CP Unavailable [...] Start Date End Date Status Dosage Lexapro [facility] 2001 [id number] 10 mg Orally Once a day July 06, 2015 1 tablet Procedures Procedure Coding System Code Date SUDHA VAG, DNA, DIR PROBE CPT-4 03515 September 20, 2015 No Charge CPT-4 67371 September 20, 2015 Office Visit, Est Pt., Level 3 CPT-4 94419 September 20, 2015 Vital Signs Date/Time: September 20, 2015 Cardiac Monitoring Heart Rate 76 bpm Weight 152.4 lbs Height 62 in Blood Pressure Diastolic 74 mmHg Blood Pressure Systolic 116 mmHg Results No Known Results Summary Purpose [employer] Submission
--- OUTSIDE RECORDS SUMMARY | 2016-06-01 10:48 | XMS REPORT | Continuity of Care Document ---
Author Author [facility] Address Unknown Phone Unavailable Allergies Active Description Code Type Severity Reaction Onset Reported/Identified Relationship to Patient Clinical Status Yes azithromycin [id number] Drug Allergy Unknown N/A 01/18/2008 Yes Zithromax Z-Alfredo Drug Allergy 06/04/2009 Yes Zithromax Z-Alfredo Drug Allergy N/A N/A 06/04/2009 Medications Problems Date Dx Coded Attending Type Code Diagnosis Diagnosed By 09/21/2007 LIO REYES DO V22.0 visit for: exam first 09/21/2007 V22.0 visit for: exam first 09/21/2007 V22.0 visit for: exam first 09/21/2007 LIO REYES DO V22.0 visit for: exam first 09/21/2007 ROLAND ANDERSON APRN V22.0 visit for: exam first 09/21/2007 NORMAN PEACE PSYD V22.0 visit for: exam first 09/21/2007 BARBARA PAN MD V22.0 visit for: exam first 09/21/2007 V22.0 visit for: exam first 09/21/2007 OBEY MAY APRN V22.0 visit for: exam first 09/21/2007 LIO REYES DO V22.0 visit for: exam first 09/21/2007 BENSON SRINIVASAN MD V22.0 visit for: exam first 09/21/2007 SERA MCKENNA APRN V22.0 visit for: exam first 10/06/2007 LIO REYES DO 616.10 BACTERIAL VAGINOSIS 10/06/2007 616.10 BACTERIAL VAGINOSIS 10/06/2007 616.10 BACTERIAL VAGINOSIS 10/06/2007 LIO REYES DO 616.10 BACTERIAL VAGINOSIS 10/06/2007 [employer], ROLAND R 616.10 BACTERIAL VAGINOSIS 10/06/2007 NORMAN PEACE PSYD L 616.10 BACTERIAL VAGINOSIS 10/06/2007 BARBARA PAN MD 616.10 BACTERIAL VAGINOSIS 10/06/2007 616.10 BACTERIAL VAGINOSIS 10/06/2007 OBEY MAY APRN L 616.10 BACTERIAL VAGINOSIS 10/06/2007 REYES SANTOS DICKERSONA K 616.10 BACTERIAL VAGINOSIS 10/06/2007 BENSON SRINIVASAN MD N 616.10 BACTERIAL VAGINOSIS 10/06/2007 CLARISAMADONNA PACHECO, SERA A 616.10 BACTERIAL VAGINOSIS 12/26/2008 REYES DO LIO K 296.90 EPISODIC MOOD DISORDERS 12/26/2008 AMY DICKERSON LIO K V25.40 visit for: contraceptive surveillance 12/26/2008 AMY DICKERSON LIO K V72.31 Pelvic Exam (Internal) 12/26/2008 296.90 EPISODIC MOOD DISORDERS 12/26/2008 V25.40 visit for: contraceptive surveillance 12/26/2008 V72.31 Pelvic Exam (Internal) 12/26/2008 296.90 EPISODIC MOOD DISORDERS 12/26/2008 V25.40 visit for: contraceptive surveillance 12/26/2008 V72.31 Pelvic Exam (Internal) 12/26/2008 AMY DO LIO K 296.90 EPISODIC MOOD DISORDERS 12/26/2008 REYES DO LIO K V25.40 visit for: contraceptive surveillance 12/26/2008 AMY DICKERSON LIO K V72.31 Pelvic Exam (Internal) 12/26/2008 LAURA ANDERSON APRNRICIA R 296.90 EPISODIC MOOD DISORDERS 12/26/2008 MONICA PACHECO ROLAND R V25.40 visit for: contraceptive surveillance 12/26/2008 MONICA PACHECO ROLAND R V72.31 Pelvic Exam (Internal) 12/26/2008 NORMAN PEACE PSYD L 296.90 EPISODIC MOOD DISORDERS 12/26/2008 NORMAN PEACE PSYD ANN L V25.40 visit for: contraceptive surveillance 12/26/2008 NORMAN PEACE PSYD L V72.31 Pelvic Exam (Internal) 12/26/2008 BARBARA PAN MD 296.90 EPISODIC MOOD DISORDERS 12/26/2008 BARBARA PAN MD V25.40 VISIT FOR: CONTRACEPTIVE SURVEILLANCE 12/26/2008 BARBARA PAN MD V72.31 PELVIC EXAM (INTERNAL) 12/26/2008 296.90 EPISODIC MOOD DISORDERS 12/26/2008 V25.40 VISIT FOR: CONTRACEPTIVE SURVEILLANCE 12/26/2008 V72.31 PELVIC EXAM (INTERNAL) 12/26/2008 MADL [employer], OBEY L 296.90 EPISODIC MOOD DISORDERS 12/26/2008 MADL [employer], OBEY L V25.40 VISIT FOR: CONTRACEPTIVE SURVEILLANCE 12/26/2008 MADL [employer], OBEY L V72.31 PELVIC EXAM (INTERNAL) 12/26/2008 LIO REYES DO K 296.90 EPISODIC MOOD DISORDERS 12/26/2008 LIO REYES DO K V25.40 VISIT FOR: CONTRACEPTIVE SURVEILLANCE 12/26/2008 LIO REYES DO V72.31 PELVIC EXAM (INTERNAL) 12/26/2008 BENSON SRINIVASAN MD 296.90 EPISODIC MOOD DISORDERS 12/26/2008 BENSON SRINIVASAN MD V25.40 VISIT FOR: CONTRACEPTIVE SURVEILLANCE 12/26/2008 BENSON SRINIVASAN MD V72.31 PELVIC EXAM (INTERNAL) 12/26/2008 CLARISA APRN, SERA A 296.90 EPISODIC MOOD DISORDERS 12/26/2008 CLARISAAditi PACHECO SERA A V25.40 VISIT FOR: CONTRACEPTIVE SURVEILLANCE 12/26/2008 CLARISAAditi PACHECO SERA A V72.31 PELVIC EXAM (INTERNAL) 06/04/2009 LIO REYES DO 616.10 VAGINITIS AND VULVOVAGINITIS, UNSPECIFIED 06/04/2009 616.10 VAGINITIS AND VULVOVAGINITIS, UNSPECIFIED 06/04/2009 616.10 VAGINITIS AND VULVOVAGINITIS, UNSPECIFIED 06/04/2009 LIO REYES DO 616.10 VAGINITIS AND VULVOVAGINITIS, UNSPECIFIED 06/04/2009 ROLAND ANDERSON APRN 616.10 VAGINITIS AND VULVOVAGINITIS, UNSPECIFIED 06/04/2009 NORMAN PEACE PSYD 616.10 VAGINITIS AND VULVOVAGINITIS, UNSPECIFIED 06/04/2009 BARBARA PAN MD 616.10 VAGINITIS AND VULVOVAGINITIS, UNSPECIFIED 06/04/2009 616.10 VAGINITIS AND VULVOVAGINITIS, UNSPECIFIED 06/04/2009 OBEY MAY APRN L 616.10 VAGINITIS AND VULVOVAGINITIS, UNSPECIFIED 06/04/2009 LIO REYES DO 616.10 VAGINITIS AND VULVOVAGINITIS, UNSPECIFIED 06/04/2009 CRAIG HENLEY, BENSON [place] 616.10 VAGINITIS AND VULVOVAGINITIS, UNSPECIFIED 06/04/2009 SERA MCKENNA APRN 616.10 VAGINITIS AND VULVOVAGINITIS, UNSPECIFIED 01/20/2011 LIO REYES DO 311 DEPRESSIVE DISORDER NOT ELSEWHERE CLASSIFIED 01/20/2011 LIO REYES DO V58.69 LONG-TERM (CURRENT) USE OF OTHER MEDICATIONS 01/20/2011 311 DEPRESSIVE DISORDER NOT ELSEWHERE CLASSIFIED 01/20/2011 V58.69 LONG-TERM (CURRENT) USE OF OTHER MEDICATIONS 01/20/2011 311 DEPRESSIVE DISORDER NOT ELSEWHERE CLASSIFIED 01/20/2011 V58.69 LONG-TERM (CURRENT) USE OF OTHER MEDICATIONS 01/20/2011 LIO REYES DO 311 DEPRESSIVE DISORDER NOT ELSEWHERE CLASSIFIED 01/20/2011 LIO REYES DO V58.69 LONG-TERM (CURRENT) USE OF OTHER MEDICATIONS 01/20/2011 CARLOTA ANDERSON APRNIA R 311 DEPRESSIVE DISORDER NOT ELSEWHERE CLASSIFIED 01/20/2011 CARLOTA ANDERSON APRNIA R V58.69 LONG-TERM (CURRENT) USE OF OTHER MEDICATIONS 01/20/2011 NORMAN PEACE PSYD 311 DEPRESSIVE DISORDER NOT ELSEWHERE CLASSIFIED 01/20/2011 NORMAN PEACE PSYD V58.69 LONG-TERM (CURRENT) USE OF OTHER MEDICATIONS 01/20/2011 BARBARA PAN MD 311 DEPRESSIVE DISORDER NOT ELSEWHERE CLASSIFIED 01/20/2011 BARBARA PAN MD V58.69 LONG-TERM (CURRENT) USE OF OTHER MEDICATIONS 01/20/2011 311 DEPRESSIVE DISORDER NOT ELSEWHERE CLASSIFIED 01/20/2011 V58.69 LONG-TERM (CURRENT) USE OF OTHER MEDICATIONS 01/20/2011 ALEXANDRA MAY APRNA L 311 DEPRESSIVE DISORDER NOT ELSEWHERE CLASSIFIED 01/20/2011 YOLAL TARA OBEY L V58.69 LONG-TERM (CURRENT) USE OF OTHER MEDICATIONS 01/20/2011 LIO REYES DO K 311 DEPRESSIVE DISORDER NOT ELSEWHERE CLASSIFIED 01/20/2011 LIO REYES DO K V58.69 LONG-TERM (CURRENT) USE OF OTHER MEDICATIONS 01/20/2011 BENSON SRINIVASAN MD 311 DEPRESSIVE DISORDER NOT ELSEWHERE CLASSIFIED 01/20/2011 BENSON SRINIVASAN MD V58.69 LONG-TERM (CURRENT) USE OF OTHER MEDICATIONS 01/20/2011 CLARISA [employer], SERA A 311 DEPRESSIVE DISORDER NOT ELSEWHERE CLASSIFIED 01/20/2011 CLARISA [employer], SERA A V58.69 LONG-TERM (CURRENT) USE OF OTHER MEDICATIONS 04/02/2012 LIO REYES DO 461.9 SINUSITIS ACUTE 04/02/2012 LIO REYES DO 784.91 POSTNASAL DRIP 04/02/2012 461.9 SINUSITIS ACUTE 04/02/2012 784.91 POSTNASAL DRIP 04/02/2012 461.9 SINUSITIS ACUTE 04/02/2012 784.91 POSTNASAL DRIP 04/02/2012 LIO REYES DO 461.9 SINUSITIS ACUTE 04/02/2012 LIO REYES DO K 784.91 POSTNASAL DRIP 04/02/2012 CARLOTA ANDERSON APRNIA R 461.9 SINUSITIS ACUTE 04/02/2012 CARLOTA ANDERSON APRNIA R 784.91 POSTNASAL DRIP 04/02/2012 NORMAN PEACE PSYD 461.9 SINUSITIS ACUTE 04/02/2012 NORMAN PEACE PSYD 784.91 POSTNASAL DRIP 04/02/2012 BARBARA PAN MD 461.9 SINUSITIS ACUTE 04/02/2012 BARBARA PAN MD 784.91 POSTNASAL DRIP 04/02/2012 461.9 SINUSITIS ACUTE 04/02/2012 784.91 POSTNASAL DRIP 04/02/2012 OBEY MAY APRN 461.9 SINUSITIS ACUTE 04/02/2012 OBEY MAY APRN 784.91 POSTNASAL DRIP 04/02/2012 LIO REYES DO 461.9 SINUSITIS ACUTE 04/02/2012 LIO REYES DO K 784.91 POSTNASAL DRIP 04/02/2012 BENSON SRINIVASAN MD N 461.9 SINUSITIS ACUTE 04/02/2012 BENSON SRINIVASAN MD 784.91 POSTNASAL DRIP 04/02/2012 CLARISA RIAZ PACHECOIDI A 461.9 SINUSITIS ACUTE 04/02/2012 CLARISA [employer] CHIEFRIAZSERA A 784.91 POSTNASAL DRIP 07/08/2012 625.9 pelvic pain 07/08/2012 625.9 pelvic pain 07/08/2012 AMY DICKERSON LIO K 625.9 pelvic pain 07/08/2012 ROLAND ANDERSON APRN R 625.9 pelvic pain 07/08/2012 NORMAN PEACE PSYD 625.9 pelvic pain 07/08/2012 BARBARA PAN MD 625.9 PELVIC PAIN 07/08/2012 625.9 PELVIC PAIN 07/08/2012 OBEY MAY APRN L 625.9 PELVIC PAIN 07/08/2012 SANTOS REYES DOA K 625.9 PELVIC PAIN 07/08/2012 BENSON SRINIVASAN MD 625.9 PELVIC PAIN 07/08/2012 CLARISAMADONNA PACHECO SERA A 625.9 PELVIC PAIN 08/03/2012 599.0 URINARY TRACT INFECTION 08/03/2012 SANTOS REYES DOA K 599.0 URINARY TRACT INFECTION 08/03/2012 ROLAND ANDERSON APRN R 599.0 URINARY TRACT INFECTION 08/03/2012 NORMAN PEACE PSYD L 599.0 URINARY TRACT INFECTION 08/03/2012 BARBARA PAN MD 599.0 URINARY TRACT INFECTION 08/03/2012 599.0 URINARY TRACT INFECTION 08/03/2012 CARLOS MAY APRNWNYA L 599.0 URINARY TRACT INFECTION 08/03/2012 AMY DICKERSON LIO K 599.0 URINARY TRACT INFECTION 08/03/2012 BENSON SRINIVASAN MD 599.0 URINARY TRACT INFECTION 08/03/2012 CLARISAAditi PACHECO SERA A 599.0 URINARY TRACT INFECTION 10/26/2012 SANTOS REYES DOA K 133.0 SCABIES 10/26/2012 CARLOTA ANDERSON APRNIA R 133.0 SCABIES 10/26/2012 NORMAN PEACE PSYD L 133.0 SCABIES 10/26/2012 BARBARA PAN MD 133.0 SCABIES 10/26/2012 133.0 SCABIES 10/26/2012 OBEY MAY APRN L 133.0 SCABIES 10/26/2012 LIO REYES DO K 133.0 SCABIES 10/26/2012 BENSON SRINIVASAN MD 133.0 SCABIES 10/26/2012 CLARISA PACHECO, SERA A 133.0 SCABIES 02/17/2013 NORMAN PEACE PSYD L 296.89 MO BIPOLAR II 02/17/2013 NORMAN PEACE PSYD L 309.81 AN PTSD 02/17/2013 BARBARA PAN MD 296.89 MO BIPOLAR II 02/17/2013 BARBARA PAN MD 309.81 AN PTSD 02/17/2013 296.89 MO BIPOLAR II 02/17/2013 309.81 AN PTSD 02/17/2013 ALEXANDRA MAY APRNA L 296.89 MO BIPOLAR II 02/17/2013 YOLAL ALEXANDRA PACHECOA L 309.81 AN PTSD 02/17/2013 LIO REYES DO K 296.89 MO BIPOLAR II 02/17/2013 LIO REYES DO K 309.81 AN PTSD 02/17/2013 BENSON SRINIVASAN MD N 296.89 MO BIPOLAR II 02/17/2013 BENSON SRINIVASAN MD 309.81 AN PTSD 02/17/2013 RIAZ MCKENNA APRNIDI A 296.89 MO BIPOLAR II 02/17/2013 CLARISA PACHECO SERA A 309.81 AN PTSD 03/13/2014 MADALEXANDRA Good APRNA L 788.1 DYSURIA 03/13/2014 MADL CAROLS PACHECOWNYA L V22.2 STATE INCIDENTAL 03/13/2014 LIO REYES DO K 788.1 DYSURIA 03/13/2014 LIO REYES DO K V22.2 STATE INCIDENTAL 03/13/2014 BENSON SRINIVASAN MD N 788.1 DYSURIA 03/13/2014 BENSON SRINIVASAN MD V22.2 STATE INCIDENTAL 03/13/2014 CLARISAAditi PACHECO SERA A 788.1 DYSURIA 03/13/2014 CLARISA [employer], SERA A V22.2 STATE INCIDENTAL 04/03/2014 LIO REYES DO 654.20 PREVIOUS 04/03/2014 AMY LIO V22.1 , NORMAL OTHER 04/03/2014 AMY LIO V74.5 STD SCREEN 04/03/2014 LIO REYES DO V76.2 CERVICAL CANCER SCREENING (PAP SMEAR) 04/03/2014 BENSON SRINIVASAN MD 654.20 PREVIOUS 04/03/2014 BENSON SRINIVASAN MD V22.1 , NORMAL OTHER 04/03/2014 BENSON SRINIVASAN MD V74.5 STD SCREEN 04/03/2014 BENSON SRINIVASAN MD V76.2 CERVICAL CANCER SCREENING (PAP SMEAR) 04/03/2014 SERA MCKENNA APRN 654.20 PREVIOUS 04/03/2014 SERA MCKENNA APRN V22.1 , NORMAL OTHER 04/03/2014 SERA MCKENNA APRN V74.5 STD SCREEN 04/03/2014 SERA MCKENNA APRN V76.2 CERVICAL CANCER SCREENING (PAP SMEAR) 04/19/2014 LIO REYES DO V74.1 TB SCREENING 04/19/2014 BENSON SRINIVASAN MD V74.1 TB SCREENING 04/19/2014 SERA MCKENNA APRN V74.1 TB SCREENING 04/28/2014 BENSON SRINIVASAN MD V04.81 FLU SHOT 04/28/2014 SERA MCKENNA APRN V04.81 FLU SHOT 06/29/2014 SERA MCKENNA APRN V77.1 DIABETES SCREENING 06/29/2014 SERA MCKENNA APRN V78.0 ANEMIA SCREENING 08/07/2014 Ot V28.81 08/22/2014 Ot V28.81 08/22/2014 Ot V28.81 08/22/2014 LOREE ALVAREZ DO Ot 786.09 RESPIRATORY ABNORM NEC 08/22/2014 BENSON SRINIVASAN MD Ot 655.73 DECR MOVEMNT ANTEPARTUM CONDITION 08/23/2014 LOREE ALVAREZ DO Ot 786.09 08/29/2014 Ot V28.81 09/05/2014 Ot V28.81 09/05/2014 LOREE ALVAREZ DO Ot 786.09 09/12/2014 Ot V28.81 09/12/2014 JOANNE DICKERSON DONNA Deutsch Ot 654.23 09/12/2014 JOANNE DICKERSON DONNA Deutsch Ot V72.83 09/12/2014 JOANNE DICKERSON DONNA Deutsch Ot V74.8 09/13/2014 JOANNE DICKERSON DONNA Deutsch Ot 285.1 AC POSTHEMORRHAG ANEMIA 09/13/2014 JOANNE DO DONNA Deutsch Ot 648.22 ANEMIA-DELIVERED W P/P 09/13/2014 JOANNE DICKERSON DONNA Deutsch Ot 654.21 PREV DELIVRY W/ OR W/O MENT ANT 09/13/2014 JOANNE DO DONNA [place] Ot V06.1 [id number], COMBINED [ 09/13/2014 JOANNE DO DONNA [place] Ot V27.0 DELIVER-SINGLE LIVEBORN 05/13/2016 Ot V28.81 ENCOUNTER FOR ANATOMIC SURVEY 05/13/2016 JOANNE DICKERSON DONNA [place] Ot 654.23 PREV DELIVERY, ANTEPARTUM COND 05/13/2016 JOANNE DICKERSON DONNA [place] Ot V72.83 EXAM PRE-OPERATIVE NEC 05/13/2016 JOANNE DICKERSON DONNA [place] Ot V74.8 SCREEN-BACTERIAL DIS NEC 05/13/2016 Ot V28.81 ENCOUNTER FOR ANATOMIC SURVEY 05/13/2016 JOANNE DICKERSON DONNA Deutsch Ot 654.23 PREV DELIVERY, ANTEPARTUM COND 05/13/2016 DONNA RUBIO DO Ot V72.83 EXAM PRE-OPERATIVE NEC 05/13/2016 DONNA RUBIO DO Ot V74.8 SCREEN-BACTERIAL DIS NEC 05/13/2016 ISRRAEL MAHAN DO Ot K80.63 CALCULUS OF GB AND BILE DUCT W ACUTE CHO 05/13/2016 ISRRAEL MAHAN DO Ot K85.10 BILIARY ACUTE PANCREATITIS WITHOUT NECRO 05/13/2016 ISRRAEL MAHAN DO Ot Z87.891 PERSONAL HISTORY OF NICOTINE DEPENDENCE 05/26/2016 Ot V28.81 ENCOUNTER FOR ANATOMIC SURVEY 05/26/2016 CHEMAMONICA DICKERSON DONNA [place] Ot 654.23 PREV DELIVERY, ANTEPARTUM COND 05/26/2016 DONNA RUBIO DO Ot V72.83 EXAM PRE-OPERATIVE NEC 05/26/2016 DONNA RUBIO DO Ot V74.8 SCREEN-BACTERIAL DIS NEC Procedures Code [place] [address] UA LONG DIP 08/03 30429 CULTURE URINE 09349 UA LONG DIP 01/27 53896 CULTURE URINE 79143 PSYCH DIAGNOSTIC EVALUATION 02/17/2013 53564 UA W/ CULTURE IF INDICATED 03/13/2014 53353 TEST, URINE (IN-HOUSE) 03/13/2014 82819 TB TEST INTRADERMAL 04/19/2014 00265 TB TEST INTRADERMAL 05/09/2014 38699 UA OB DIP 2014 51323 ROUTINE VENIPUNCTURE 06/29/2014 76434 UA OB DIP 2014 35566 CBC 06/30/2014 58522 GLUCOSE ELMA 1 HOUR 06/30/2014 74.1 LOW CERVICAL 09/11/2014 [id number] RESECTION OF GALLBLADDER, PERCUTANEOUS E 05/13/2016 [id number] FLUOROSCOPY OF BILE DUCTS USING LOW OSMO 05/13/2016 Results Test Result Range Complete blood count (CBC) with automated white blood cell (WBC) differential - 05/13/16 01:43 Blood leukocytes automated count (number/volume) 9.9 10*3/ uL 4.3-11.0 Blood erythrocytes automated count (number/volume) 4.63 10*6 /uL 4.35-5.85 Venous blood hemoglobin measurement (mass/volume) 12.8 g/dL 11.5-16.0 Blood hematocrit (volume fraction) 38 % 35-52 Automated erythrocyte mean corpuscular volume 83 [foz_us] 80-99 Automated erythrocyte mean corpuscular hemoglobin (mass per erythrocyte) 28 pg 25-34 Automated erythrocyte mean corpuscular hemoglobin concentration measurement ( mass/volume) 33 g/dL 32-36 Automated erythrocyte distribution width ratio 14.0 % 10.0-14.5 Automated blood platelet count (count/volume) 266 10*3/uL 130-400 Automated blood platelet mean volume measurement 10.4 [foz_ us] 7.4-10.4 Automated blood neutrophils/100 leukocytes 66 % 42-75 Automated blood lymphocytes/100 leukocytes 26 % 12-44 Blood monocytes/100 leukocytes 7 % 0-12 Automated blood eosinophils/100 leukocytes 1 % 0-10 Automated blood basophils/100 leukocytes 0 % 0-10 Blood neutrophils automated count (number/volume) 6.6 10*3 1.8-7.8 Blood lymphocytes automated count (number/volume) 2.6 10*3 1.0-4.0 Blood monocytes automated count (number/volume) 0.7 10*3 0.0-1.0 Automated eosinophil count 0.1 10*3/uL 0.0-0.3 Automated blood basophil count (count/volume) 0.0 10*3/uL 0.0-0.1 Comprehensive metabolic panel - 05/13/16 01:43 Serum or plasma sodium measurement (moles/volume) 140 mmol/ L 135-145 Serum or plasma potassium measurement (moles/volume) 3.4 mmol/L 3.6-5.0 Serum or plasma chloride measurement (moles/volume) 106 mmol /L 98-107 Carbon dioxide 21 mmol/L 21-32 Serum or plasma anion gap determination (moles/volume) 13 mmol/L 5-14 Serum or plasma urea nitrogen measurement (mass/volume) 11 mg/dL 7-18 Serum or plasma creatinine measurement (mass/volume) 0.79 mg /dL 0.60-1.30 Serum or plasma urea nitrogen/creatinine mass ratio 14 NRG Serum or plasma creatinine measurement with calculation of estimated glomerular filtration rate > NRG Serum or plasma glucose measurement (mass/volume) 113 mg/dL 70-105 Serum or plasma calcium measurement (mass/volume) 9.2 mg/dL 8.5-10.1 Serum or plasma total bilirubin measurement (mass/volume) 1.2 mg/dL 0.1-1.0 Serum or plasma alkaline phosphatase measurement (enzymatic activity/volume) 204 U/L 40-136 Serum or plasma aspartate aminotransferase measurement (enzymatic activity/ volume) 473 U/L 5-34 Serum or plasma alanine aminotransferase measurement (enzymatic activity/volume ) 313 U/L 0-55 Serum or plasma protein measurement (mass/volume) 6.9 g/dL 6.4-8.2 Serum or plasma albumin measurement (mass/volume) 4.3 g/dL 3.2-4.5 Serum or plasma amylase measurement (enzymatic activity/volume) - 05/13/16 01: 43 Serum or plasma amylase measurement (enzymatic activity/volume) 2026 U/L 25-125 Lipase - 05/13/16 01:43 Lipase 7901 U/L 8-78 Complete urinalysis with reflex to culture - 05/13/16 01:46 Urine color determination YELLOW NRG Urine clarity determination CLEAR NRG Urine pH measurement by test strip 8 5- 9 Specific gravity of urine by test strip 1.010 1.016-1.022 Urine protein assay by test strip, semi-quantitative NEGATIVE NEGATIVE Urine glucose detection by automated test strip NEGATIVE NEGATIVE Erythrocytes detection in urine sediment by light microscopy NEGATIVE NEGATIVE Urine ketones detection by automated test strip NEGATIVE NEGATIVE Urine nitrite detection by test strip NEGATIVE NEGATIVE Urine total bilirubin detection by test strip NEGATIVE NEGATIVE Urine urobilinogen measurement by automated test strip (mass/volume) 4 mg/dL NORMAL Urine leukocyte esterase detection by dipstick 1+ NEGATIVE Automated urine sediment erythrocyte count by microscopy (number/high power field) RARE NRG Automated urine sediment leukocyte count by microscopy (number/high power field ) RARE NRG Bacteria detection in urine sediment by light microscopy TRACE NRG Squamous epithelial cells detection in urine sediment by light microscopy 10-25 NRG Crystals detection in urine sediment by light microscopy NONE NRG Casts detection in urine sediment by light microscopy NONE NRG Mucus detection in urine sediment by light microscopy SMALL NRG Complete urinalysis with reflex to culture NO NRG Complete blood count (CBC) with automated white blood cell (WBC) differential - 05/13/16 07:59 Blood leukocytes automated count (number/volume) 7.4 10*3/ uL 4.3-11.0 Blood erythrocytes automated count (number/volume) 4.64 10*6 /uL 4.35-5.85 Venous blood hemoglobin measurement (mass/volume) 12.9 g/dL 11.5-16.0 Blood hematocrit (volume fraction) 39 % 35-52 Automated erythrocyte mean corpuscular volume 83 [foz_us] 80-99 Automated erythrocyte mean corpuscular hemoglobin (mass per erythrocyte) 28 pg 25-34 Automated erythrocyte mean corpuscular hemoglobin concentration measurement ( mass/volume) 33 g/dL 32-36 Automated erythrocyte distribution width ratio 13.9 % 10.0-14.5 Automated blood platelet count (count/volume) 246 10*3/uL 130-400 Automated blood platelet mean volume measurement 10.6 [foz_ us] 7.4-10.4 Automated blood neutrophils/100 leukocytes 78 % 42-75 Automated blood lymphocytes/100 leukocytes 13 % 12-44 Blood monocytes/100 leukocytes 7 % 0-12 Automated blood eosinophils/100 leukocytes 1 % 0-10 Automated blood basophils/100 leukocytes 0 % 0-10 Blood neutrophils automated count (number/volume) 5.8 10*3 1.8-7.8 Blood lymphocytes automated count (number/volume) 1.0 10*3 1.0-4.0 Blood monocytes automated count (number/volume) 0.5 10*3 0.0-1.0 Automated eosinophil count 0.1 10*3/uL 0.0-0.3 Automated blood basophil count (count/volume) 0.0 10*3/uL 0.0-0.1 Comprehensive metabolic panel - 05/13/16 07:59 Serum or plasma sodium measurement (moles/volume) 139 mmol/ L 135-145 Serum or plasma potassium measurement (moles/volume) 3.9 mmol/L 3.6-5.0 Serum or plasma chloride measurement (moles/volume) 107 mmol /L 98-107 Carbon dioxide 23 mmol/L 21-32 Serum or plasma anion gap determination (moles/volume) 9 mmol/L 5-14 Serum or plasma urea nitrogen measurement (mass/volume) 9 mg /dL 7-18 Serum or plasma creatinine measurement (mass/volume) 0.77 mg /dL 0.60-1.30 Serum or plasma urea nitrogen/creatinine mass ratio 12 NRG Serum or plasma creatinine measurement with calculation of estimated glomerular filtration rate > NRG Serum or plasma glucose measurement (mass/volume) 160 mg/dL 70-105 Serum or plasma calcium measurement (mass/volume) 8.6 mg/dL 8.5-10.1 Serum or plasma total bilirubin measurement (mass/volume) 1.8 mg/dL 0.1-1.0 Serum or plasma alkaline phosphatase measurement (enzymatic activity/volume) 226 U/L 40-136 Serum or plasma aspartate aminotransferase measurement (enzymatic activity/ volume) 529 U/L 5-34 Serum or plasma alanine aminotransferase measurement (enzymatic activity/volume ) 468 U/L 0-55 Serum or plasma protein measurement (mass/volume) 6.5 g/dL 6.4-8.2 Serum or plasma albumin measurement (mass/volume) 4.1 g/dL 3.2-4.5 Serum or plasma amylase measurement (enzymatic activity/volume) - 05/13/16 07: 59 Serum or plasma amylase measurement (enzymatic activity/volume) 2599 U/L 25-125 Lipase - 05/13/16 07:59 Lipase 7909 U/L 8-78 Comprehensive metabolic panel - 05/26/16 16:54 Serum or plasma sodium measurement (moles/volume) 141 mmol/ L 135-145 Serum or plasma potassium measurement (moles/volume) 4.3 mmol/L 3.6-5.0 Serum or plasma chloride measurement (moles/volume) 108 mmol /L 98-107 Carbon dioxide 22 mmol/L 21-32 Serum or plasma anion gap determination (moles/volume) 11 mmol/L 5-14 Serum or plasma urea nitrogen measurement (mass/volume) 10 mg/dL 7-18 Serum or plasma creatinine measurement (mass/volume) 0.71 mg /dL 0.60-1.30 Serum or plasma urea nitrogen/creatinine mass ratio 14 NRG Serum or plasma creatinine measurement with calculation of estimated glomerular filtration rate > NRG Serum or plasma glucose measurement (mass/volume) 99 mg/dL 70-105 Serum or plasma calcium measurement (mass/volume) 9.6 mg/dL 8.5-10.1 Serum or plasma total bilirubin measurement (mass/volume) 0.8 mg/dL 0.1-1.0 Serum or plasma alkaline phosphatase measurement (enzymatic activity/volume) 115 U/L 40-136 Serum or plasma aspartate aminotransferase measurement (enzymatic activity/ volume) 20 U/L 5-34 Serum or plasma alanine aminotransferase measurement (enzymatic activity/volume ) 26 U/L 0-55 Serum or plasma protein measurement (mass/volume) 7.4 g/dL 6.4-8.2 Serum or plasma albumin measurement (mass/volume) 4.4 g/dL 3.2-4.5 Gram stain microscopy - 05/29/16 19:49 GRAM STAIN RESULT NO WBC'S OR BACTERIA OBSERVED [facility] [place] Bacteria identification in wound by culture - 05/29/16 19:49 Complete blood count (CBC) with automated white blood cell (WBC) differential - 05/29/16 20:02 Blood leukocytes automated count (number/volume) 9.2 10*3/ uL 4.3-11.0 Blood erythrocytes automated count (number/volume) 4.39 10*6 /uL 4.35-5.85 Venous blood hemoglobin measurement (mass/volume) 12.0 g/dL 11.5-16.0 Blood hematocrit (volume fraction) 36 % 35-52 Automated erythrocyte mean corpuscular volume 83 [foz_us] 80-99 Automated erythrocyte mean corpuscular hemoglobin (mass per erythrocyte) 27 pg 25-34 Automated erythrocyte mean corpuscular hemoglobin concentration measurement ( mass/volume) 33 g/dL 32-36 Automated erythrocyte distribution width ratio 13.7 % 10.0-14.5 Automated blood platelet count (count/volume) 370 10*3/uL 130-400 Automated blood platelet mean volume measurement 10.5 [foz_ us] 7.4-10.4 Automated blood neutrophils/100 leukocytes 64 % 42-75 Automated blood lymphocytes/100 leukocytes 28 % 12-44 Blood monocytes/100 leukocytes 5 % 0-12 Automated blood eosinophils/100 leukocytes 2 % 0-10 Automated blood basophils/100 leukocytes 1 % 0-10 Blood neutrophils automated count (number/volume) 5.9 10*3 1.8-7.8 Blood lymphocytes automated count (number/volume) 2.6 10*3 1.0-4.0 Blood monocytes automated count (number/volume) 0.5 10*3 0.0-1.0 Automated eosinophil count 0.2 10*3/uL 0.0-0.3 Automated blood basophil count (count/volume) 0.1 10*3/uL 0.0-0.1 Comprehensive metabolic panel - 05/29/16 20:02 Serum or plasma sodium measurement (moles/volume) 140 mmol/ L 135-145 Serum or plasma potassium measurement (moles/volume) 3.3 mmol/L 3.6-5.0 Serum or plasma chloride measurement (moles/volume) 107 mmol /L 98-107 Carbon dioxide 23 mmol/L 21-32 Serum or plasma anion gap determination (moles/volume) 10 mmol/L 5-14 Serum or plasma urea nitrogen measurement (mass/volume) 7 mg /dL 7-18 Serum or plasma creatinine measurement (mass/volume) 0.71 mg /dL 0.60-1.30 Serum or plasma urea nitrogen/creatinine mass ratio 10 NRG Serum or plasma creatinine measurement with calculation of estimated glomerular filtration rate > NRG Serum or plasma glucose measurement (mass/volume) 114 mg/dL 70-105 Serum or plasma calcium measurement (mass/volume) 9.1 mg/dL 8.5-10.1 Serum or plasma total bilirubin measurement (mass/volume) 0.9 mg/dL 0.1-1.0 Serum or plasma alkaline phosphatase measurement (enzymatic activity/volume) 90 U/L 40-136 Serum or plasma aspartate aminotransferase measurement (enzymatic activity/ volume) 16 U/L 5-34 Serum or plasma alanine aminotransferase measurement (enzymatic activity/volume ) 17 U/L 0-55 Serum or plasma protein measurement (mass/volume) 6.6 g/dL 6.4-8.2 Serum or plasma albumin measurement (mass/volume) 4.2 g/dL 3.2-4.5 Lipase - 05/29/16 20:02 Lipase 205 U/L 8-78 Encounters ACCT No. Visit Date/Time Discharge Status Pt. Type Provider Facility Loc./Unit Complaint [id number] 06/29/2014 15:13:00 06/29/2014 23: 59:59 CLS Outpatient SERA MCKENNA APRN [id number] 06/07/2014 14:19:00 06/07/2014 23: 59:59 CLS Outpatient BENSON SRINIVASAN MD [id number] 04/19/2014 15:51:00 04/19/2014 23: 59:59 CLS Outpatient LIO REYES DO [id number] 03/13/2014 15:50:00 03/13/2014 23: 59:59 CLS Outpatient OBEY MAY APRN [id number] 03/03/2013 06:17:00 03/03/2013 23: 59:59 CLS Outpatient [id number] 02/18/2013 15:29:00 02/18/2013 23: 59:59 CLS Outpatient BARBARA PAN MD [id number] 02/17/2013 09:49:00 02/17/2013 23: 59:59 CLS Outpatient NORMAN PEACE PSYD [id number] 01/27/2013 12:46:00 01/27/2013 23: 59:59 CLS Outpatient ROLAND ANDERSON APRN [id number] 10/26/2012 17:32:00 10/26/2012 23: 59:59 CLS Outpatient LIO REYES DO [id number] 04/02/2012 15:01:00 04/02/2012 23: 59:59 CLS Outpatient LIO REYES DO [id number] 08/03/2012 15:39:00 Document Registration [id number] 07/08/2012 15:03:00 Document Registration
--- OUTSIDE RECORDS SUMMARY | 2016-06-01 10:48 | XMS REPORT ---
Author Author BENSON SRINIVASAN [employer] Address Unknown Phone Unavailable Care Team Providers Care Clinical Program Consultant Name Role Phone BENSON SRINIVASAN CP Unavailable Allergies, Adverse Reactions, Alerts Substance Reaction Event Type Azithromycin childhood reaction Drug Allergy Problems Problem Type Condition ICD-9 Code Onset Dates Condition Status Assessment depression 648.44 Active Assessment Dysuria 788.1 Active Problem Dysuria 788.1 Active Problem Other and unspecified bipolar disorders 296.89 Active Problem Anemia during 648.23 Active Problem Previous delivery, unspecified as to episode of care or not applicable 654.20 Active Assessment Routine follow-up V24.2 Active Problem Posttraumatic stress disorder 309.81 Active Problem Supervision of other normal V22.1 Active Medications Medication Code System Code Instructions Start Date End Date Status Dosage Lexapro [facility] [address]-11 10 MG Orally Once a day Nov 21, 2014 1 tablet Procedures Procedure Coding System Code Date URINALYSIS, AUTO, W/O SCOPE CPT-4 88274 Nov 21, 2014 Office Visit, Est Pt., Level 3 CPT-4 61100 Nov 21, 2014 [facility] CPT-4 NOBLL Nov 21, 2014 VENIPUNCT, ROUTINE* CPT-4 88998 Nov 21, 2014 Vital Signs Date/Time: Nov 21, 2014 Temperature 98.7 F Weight 146.6 lbs Height 62 in BMI 26.81 Index Blood Pressure Diastolic 64 mmHg Blood Pressure Systolic 106 mmHg Cardiac Monitoring Heart Rate 84 bpm Results No Known Results Summary Purpose eClinicalWorks Submission
--- OUTSIDE RECORDS SUMMARY | 2016-06-01 10:49 | XMS REPORT ---
Author Author BENSON SRINIVASAN Organization [employer] Address Unknown Phone Unavailable Care Team Providers Care Inspector Barrel Name Role Phone BENSON SRINIVASAN CP Unavailable Allergies, Adverse Reactions, Alerts Substance Reaction Event Type Azithromycin childhood reaction Drug Allergy Problems Problem Type Condition Code Onset Dates Condition Status Problem Bipolar affective disorder, remission status unspecified F31.9 Active Problem Post traumatic stress disorder F43.10 Active Problem depression F53 Active Assessment depression F53 Active Assessment Chronic pansinusitis J32.4 Active Assessment Dental infection K04.7 Active Assessment Open fracture of tooth, initial encounter S02.5XXB Active Medications Medication Code System Code Instructions Start Date End Date Status Dosage Celexa [facility] [address]-37 20 MG Orally Once a day Dec 29, 2014 1 tablet Clindamycin HCl [facility] [address]-83 300 MG Orally every 8 hrs Dec 29, 2014 Jan 08, 2015 1 capsule Procedures Procedure Coding System Code Date Office Visit, Est Pt., Level 3 CPT-4 74190 Dec 29, 2014 Vital Signs Date/Time: Dec 29, 2014 Temperature 98.2 F Weight 152.2 lbs Height 62 in BMI 27.83 Index Blood Pressure Diastolic 70 mmHg Blood Pressure Systolic 106 mmHg Cardiac Monitoring Heart Rate 80 bpm Results No Known Results Summary Purpose [employer]ClinicalWorks Submission
--- OUTSIDE RECORDS SUMMARY | 2016-06-01 10:49 | XMS REPORT ---
Author Author BENSON SRINIVASAN [facility] e[employer] Address Unknown Phone Unavailable Care Team Providers Care Sales And Marketing Executive Name Role Phone BENSON SRINIVASAN CP Unavailable Allergies No Known Allergies Problems Problem Type Condition ICD-9 Code Onset Dates Condition Status Problem Dysuria 788.1 Active Problem Other and unspecified bipolar disorders 296.89 Active Problem Anemia during 648.23 Active Problem Previous delivery, unspecified as to episode of care or not applicable 654.20 Active Problem Posttraumatic stress disorder 309.81 Active Problem Supervision of other normal V22.1 Active Medications No Known Medications Results No Known Results Summary Purpose eClinicalWorks Submission
--- OUTSIDE RECORDS SUMMARY | 2016-06-01 10:49 | XMS REPORT ---
Author Author MARLENE CALVIN [facility] e[employer] Address Unknown Phone Unavailable Care Team Providers Care Early Childhood Assistant Name Role Phone MARLENE CALVIN CP Unavailable Allergies, Adverse Reactions, Alerts Substance Reaction Event Type Azithromycin childhood reaction Drug Allergy Problems Problem Type Condition Code Onset Dates Condition Status Assessment Vaginal yeast infection B37.3 Active Problem Generalized anxiety disorder F41.1 Active Problem depression F53 Active Problem Cervical motion tenderness N94.9 Active Assessment Dysuria R30.0 Active Assessment Cervical motion tenderness N94.9 Active Problem Bipolar affective disorder, remission status unspecified F31.9 Active Problem Post traumatic stress disorder F43.10 Active Medications Medication Code System Code Instructions Start Date End Date Status Dosage Flagyl [facility] [address]-19 500 MG Orally every 12 hrs Jan 08, 2016 Jan 15, 2016 1 tablet Refresh Cleanser [facility] [address] - Externally not defined Lexapro [facility] [address]-52 10 mg Orally Once a day July 06, [address] [facility] [address]-71 150 MG Orally Take one tablet today, may repeat in 72 hours if needed Jan 08, 2016 Jan 09, 2016 1 tablet Doxycycline Hyclate [facility] [address]-01 100 MG Orally every 12 hrs Jan 08, 2016 Jan 15, 2016 1 capsule Procedures Procedure Coding System Code Date [facility] CPT-4 NOBLL Jan 08, 2016 HALEY VAG, DNA, DIR PROBE CPT-4 69929 Jan 08, 2016 URINALYSIS, AUTO, W/O SCOPE CPT-4 48280 Jan 08, 2016 Office Visit, Est Pt., Level 3 CPT-4 33080 Jan 08, 2016 No Charge CPT-4 77181 Jan 08, 2016 Vital Signs Date/Time: Jan 08, 2016 Cardiac Monitoring Heart Rate 74 bpm Weight 147.4 lbs Height 62 in BMI 26.96 Index Blood Pressure Diastolic 62 mmHg Blood Pressure Systolic 94 mmHg Results Name Result Date Reference Range Unit Abnormality Flag BACTERIAL VAGINOSIS (IN HOUSE) ----Lot # [id number] ----Exp date 20160108 ----RESULTS Positive 20160108 ----Control + 20160108 TRICHOMONAS (IN HOUSE) ----TRICHOMONAS Negative 20160108 ----Control + 20160108 ----Lot # [id number] 20160108 ----Exp date 20160108 UA LONG DIP (IN HOUSE) ----DIANNE negative 20160108 ----GLU negative 20160108 ----SG >=1.030 20160108 ----KET negative 20160108 ----pH 7.0 20160108 ----Protein negative 20160108 ----BLO trace-intact 20160108 ----DMITRY trace 20160108 ----Color dark yello 20160108 ----Lot # [id number] 20160108 ----Odor strong 20160108 ----Exp date 20160108 ----URO 0.2 20160108 ----NIT negative 20160108 ----Clarity slightly cloudy 20160108 ----Lot # [id number] 20160108 ----Exp date 20160108 Summary Purpose eClinicalWorks Submission
== END 2016-05-29 20:44 | disposition home or self-care (01) ==
LOC: EDUNIT# 19:44 → ER 19:45
DX: G89.18 Other acute postprocedural pain (principal); L76.34 Postprocedural seroma of skin and subcutaneous tissue following other procedure; Z90.49 Acquired absence of other specified parts of digestive tract
CPT/HCPCS: 36415; 80053; 83690; 85025; 87070; 87205; 99283